=== PATIENT | male | born 1990 | race Caucasian/White ===

== ENCOUNTER 2016-10-24 04:06 | Inpatient (IN) | payer OTHER ==
--- NOTE | ~2016-10-24 | DS ---
Unit #: [id number] #: [id number] Patient: NATALYA CROOK [id number] [address] [address] [id number] MR#: [id number] NAME: NATALYA CROOK ROOM: 572 Age: 26 Sex: M Admission Date: 10/24/2016 : 1990 Discharge Date: 10/26/2016 Attending Physician: Althea Johnson M.D. DISCHARGE SUMMARY PRIMARY CARE PHYSICIAN None as the patient is from [place]. DISCHARGE DIAGNOSES 1. Hypertensive crisis. 2. End-stage renal disease. 3. Abdominal pain. 4. Diabetes with gastroparesis. 5. Heart failure. 6. Peripheral neuropathy. 7. History of major depression. 8. Dyslipidemia. 9. Anemia of chronic disease. 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 PROCEDURE The patient had dialysis today, 10/25/2016. DIAGNOSTIC STUDIES IMAGING STUDIES: Chest x-ray on 10/24/2016; impression is small right pleural effusion, unchanged from yesterday. No definite infiltrates visible. CT of abdomen and pelvis; impression is small bilateral pleural effusion, right greater than left, splenomegaly, prominent vessels in the left upper quadrant could represent varices as mentioned above. Exophytic lesion of the lower pole of spleen, which measures low density and measures about 2.9 cm, probably represent a splenic cyst. LABORATORY RESULTS: On the day of discharge include BMP with glucose of 413, BUN 26, creatinine 5.8, sodium 135, potassium 4.8, chloride 95, CO2 of 27, calcium 9.1, total protein is 6.7, albumin 3.2, total bilirubin is 1.1. AST 11, ALT 8, alk phos is 56, amylase is 21, lipase is 42, BNP is 1227. The patient's hemoglobin A1c was 7.9. CBC; WBC 8.2, RBC 3.53, hemoglobin 8.7, hematocrit 27.3, MCV is 77.1, MCH 24.1, MCHC 32.0, RDW 18.9, platelet 162, MVP 8.0. HOSPITAL COURSE The patient is a 26-year-old male with a past medical history of congenital renal disease, on hemodialysis Saturday, Saturday, and Saturday, essential hypertension, diabetes with gastroparesis, dyslipidemia, anemia Unit #: [id number] #: [id number] Patient: NATALYA CROOK due to chronic kidney disease, who was admitted to [facility] due to abdominal pain and the patient was also found to have hypertensive crisis. Blood pressure elevated to 194/120. A BNP when assessed was elevated to 1227. Please note the patient does have endstage renal disease and is dialysis dependent. To assess abdominal pain, a CT of abdomen was done with findings as stated above. With this much elevated BNP, a CT echo was done with findings, left ventricular systolic function is normal with estimated ejection fraction of 50% to 55%. No regional wall motion abnormalities are noted. Mild concentric left ventricular hypertrophy, mildly dilated left atrium, mild mitral regurgitation is present, mild tricuspid regurgitation, right ventricular systolic pressure is 47 mmHg. No evidence of pericardial effusion. The patient likely has hypertensive emergency as well as much elevated BNP due to his volume overload. He was see in consultation with Nephrology, Dr. Bui, who has written orders for the patient to receive dialysis 4 hours today. The patient has recently moved here from [place] and is getting dialysis temporarily at [facility]. He does have a slot there and he will continue dialysis there until his boat engines installer in [place] can arrange for a boat engines installer in [place] to follow him and at that time, the patient's symptoms of abdominal pain and has an unremarkable workup with elevated BNP. His echocardiogram is unremarkable and these findings were likely due to his renal disease. The patient should continue with dialysis and the temporary physician with [facility] until permanent boat engines installer can take care of him here in nephrology and this is being arranged by his boat engines installer in [place]. The patient may also be transferred dialysis under the care of Dr. Bui, who has been seeing him in the hospital. This can be arranged outpatient. At this time, the patient will be discharged home after dialysis done. DISCHARGE CONDITION Stable. ACTIVITIES No restrictions. The patient is to resume activities as prior to hospitalization, was ambulating every day. DISCHARGE DIET The patient is to have renal diet as he has an endstage renal disease, on dialysis. DISCHARGE MEDICATIONS As per prior to hospitalization with sodium bicarb 650 mg orally t.i.d., gabapentin 100 mg orally t.i.d., Paxil 10 mg orally daily, atorvastatin 80 mg orally daily, Norvasc 10 mg orally daily, Epogen 8 units Saturday, Saturday, Saturday with dialysis, clonidine 0.3 mg orally t.i.d., hydralazine 100 mg orally t.i.d., minoxidil 2.5 mg orally daily, Humalog 4 units subcutaneously prior to meals in addition to sliding scale insulin, Lantus 25 units subcutaneously b.i.d., Reglan 5 mg orally t.i.d., Zantac 150 mg orally b.i.d., Carafate 1 g orally t.i.d., Imdur 60 mg orally daily. Dictated by... Dylon Lauren PA-C for Ludin Zamarripa/abraham TD: 10/28/2016 06:27 JOB #: [id number] Unit #: [id number] #: [id number] Patient: CROOKNATALYA DOUGLAS DISCHARGE SUMMARY Page 1 of 1 X X DISCHARGE SUMMARY
--- NOTE | ~2016-10-24 | EKG ---
PATIENT: NATALYA CROOK UNIT #: [id number] Ventricular Rate: 93 BPM Atrial Rate: 93 BPM P-R Interval: 158 ms QRS Duration: 92 ms Q-T Interval: 360 ms QTC Calculation(Bezet): 447 ms P Simpson: 10 degrees Calculated R Simpson: 3 degrees Calculated T Simpson: 38 degrees Diagnosis Line: Normal sinus rhythm Diagnosis Line: Normal ECG Diagnosis Line: No previous ECGs available Diagnosis Line: Confirmed by DAX LANZA MD ([id number]) on 10/25/2016 Diagnosis Line: 7:46:26 PM INTERPRETING MD: MYLA TARANGO
--- NOTE | ~2016-10-24 | CR72 ---
[facility] A Service of [facility] & [facility] RADIOLOGY TEXT RESULTS PATIENT: NATALYA CROOK LOCATION: [facility] [id number] : [birth year] UNIT #: [id number] AGE: [address]: Althea Johnson MD SEX: M ORDER DR: [id number] [facility] [address] [place], [place] [address] [id number] I MR#: [id number] Acc #: [id number] NAME: NATALYA CROOK : 1990 SEX: M STUDY DATE/TIME: 10/24/2016 6:36 UNIT: [facility] ROOM: 68620 STUDY DESCRIPTION: CR Chest Single View Portable Attending Physician: Althea Johnson M.D. Ordering Physician: Ed Doctor [id number] [facility] Primary Care Physician: Primary Care Physician No MEDICAL IMAGING REPORT This report is preliminary unless electronic signature is present EXAM Portable chest. HISTORY Shortness of air and chest pain for one day. COMPARISON 10/23/2016 FINDINGS A portable view of the chest is obtained. The heart size is upper limits of normal. The left lung is clear. There is a small right pleural effusion. There has been no change from yesterday's study. IMPRESSION Small right pleural effusion, unchanged from yesterday. No definite infiltrates are visible. Dictated by... Nicolas Hogan M.D. THIS IS AN ELECTRONICALLY VERIFIED REPORT Nicolas Hogan M.D. at 10/24/2016 3:57 PM Bryce TD: 10/24/2016 10:05 JOB #: [id number] MEDICAL IMAGING REPORT Page 1 of 1 COPY
--- NOTE | ~2016-10-24 | CT4 ---
[facility] A Service of [facility] RADIOLOGY TEXT RESULTS PATIENT: NATALYA CROOK LOCATION: [facility] 572-01 : [birth year] UNIT #: [id number] AGE: [address]: Althea Johnson MD SEX: M ORDER DR: [id number] [facility] [address] [place], [place] [address] [id number] MR#: [id number] Acc #: [id number] NAME: NATALYA CROOK : 1990 SEX: M STUDY DATE/TIME: 10/24/2016 18:39 UNIT: [facility] ROOM: 2 STUDY DESCRIPTION: CT Abd and Pelv Wo Cont Attending Physician: Althea Johnson M.D. Ordering Physician: Althea Johnson M.D. Primary Care Physician: No Primary Care Physician MEDICAL IMAGING REPORT This report is preliminary unless electronic signature is present EXAM CT abdomen and pelvis without contrast HISTORY Generalized abdominal pain for 2 days. History of CHF. Kidney disease. TECHNIQUE This CT exam was performed with one or more of the following radiation dose reduction techniques: automatic exposure control, adjustment of mA and/or kV according to patient size, and iterative reconstruction. FINDINGS Axial images performed through the abdomen and pelvis without contrast. Multiplanar reconstructed images reviewed at a workstation. There are small bilateral pleural effusions right greater than left. There is cardiomegaly. Liver and gallbladder unremarkable. Splenomegaly. Visualized portions stomach, small bowel and colon unremarkable except for areas of increased density within the right colon and probably related to medicinal preparation. Retroperitoneum unremarkable. Pelvis: Bladder decompressed. No pelvic masses. Osseous structures remarkable for deformity of both hips which may be related to chronic slip cap femoral epiphyses. Bone deformity seen along the anterior abdominal wall may be related previous ventral incision. IMPRESSION 1. Small bilateral pleural effusions right greater than left. 2. Splenomegaly. 3. Prominent vessels in the left upper quadrant could represent varices, 4. Not mentioned above, there is an exophytic lesion off the lower pole of the spleen which appears low density and measures about 2.9 cm, [facility] A Service of [facility] RADIOLOGY TEXT RESULTS PATIENT: NATALYA CROOK LOCATION: C5 572-01 : [birth year] UNIT #: [id number] AGE: [address]: Althea Johnson MD SEX: M ORDER DR: probably represents a splenic cyst. Dictated by... Anjel Hancock M.D. THIS IS AN ELECTRONICALLY VERIFIED REPORT Anjel Hancock M.D. at 10/25/2016 2:03 PM Dimas TD: 10/24/2016 22:01 JOB #: [id number] MEDICAL IMAGING REPORT Page 1 of 1 COPY
--- NOTE | ~2016-10-24 | HP ---
Unit #: [id number] #: [id number] Patient: NATALYA CROOK [id number] [address] [place], [place] [address] [id number] I MR#: [id number] NAME: NATALYA CROOK ROOM: 572 Age: 26 Sex: M Admission Date: 10/24/2016 : 1990 Attending Physician: Althea Johnson M.D. Primary Care Physician: No Primary Care Physician HISTORY AND PHYSICAL REASON FOR ADMISSION Intractable abdominal pain, hyperkalemia, end-stage renal disease, hypertensive crisis. 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 He states that several years ago his kidneys stopped functioning altogether. He was placed on dialysis originally when he had been living in [place]. He recently had moved to [place] several months ago. He has been seeing Dr. Michael Bui of Nephrology Services for the same and has been undergoing routine dialysis per his discretion. He does not have a primary care physician per se. He also tells me that in the past he has been diagnosed with heart failure. His BNP on admission was noted to be 1,227. He is not sure what his ejection fraction was or is. He is not sure when his last 2-D echocardiogram was performed. Initial laboratory studies yielded a potassium of 6.1, creatinine 6.2, hemoglobin 9.2, BNP of 1,227 and normal lipase level. He also tells me in the past he has had a history of chronic pancreatitis, issues with intractable abdominal pain and this feels like one of those episodes that he is currently having at the present time. PAST MEDICAL HISTORY Heart failure, unclear if it is diastolic versus systolic, end-stage renal disease, prior history of kidney transplant at age 12, history of nonfunctioning kidneys, hypertension, questionable compliance with medications, history of chronic pancreatitis. PAST SURGICAL HISTORY History of kidney transplant at age 12. SOCIAL HISTORY No alcohol use. No tobacco use. The patient denies illicit drug use. FAMILY HISTORY Reviewed and noncontributory, nonpertinent. ALLERGIES Codeine, amoxicillin, iodine, contrast. Unit #: [id number] #: [id number] Patient: NATALYA CROOK HOME MEDICATIONS Currently being verified. REVIEW OF SYSTEMS Please see HPI, 12-point otherwise negative except for those positive noted in the HPI. PHYSICAL EXAMINATION GENERAL APPEARANCE: The patient is a 26-year-old male who states that his abdomen is really bothering him. VITAL SIGNS: Temperature 98.9. Pulse 92. Respiratory rate 22. Blood pressure 194/120. HEENT: Head exam: Atraumatic. Ear exam: No erythema noted on tympanic membranes. NECK: Supple. No JVD. No carotid bruits. CARDIOVASCULAR: S1, S2 without murmur. RESPIRATORY: Clear. No evidence of any wheeze, rales or rhonchi. GASTROINTESTINAL/ABDOMEN: Distension noted. Diffuse tenderness noted more marked in the epigastric area. LOWER EXTREMITIES: No evidence of any lower extremity edema. No calf tenderness. NEUROLOGIC: The patient is alert and oriented x3. No evidence of any focal neuro deficits. DIAGNOSTIC STUDIES INITIAL LABORATORY STUDIES: Please see above including a potassium of 6.1, creatinine 6.2, hemoglobin 9.2, BNP of 1,227. ER COURSE The patient received morphine, Zofran, Dilaudid, Kayexalate, regular insulin 8 units IV as well as calcium gluconate. Dr. Michael Bui of Nephrology Services has already seen and evaluated the patient and plans have been made for hemodialysis later this afternoon. INITIAL ADMISSION DIAGNOSES 1. Hypertensive urgency. 2. Likely fluid overload. 3. End-stage renal disease. 4. Intractable abdominal pain. 5. History of chronic pancreatitis. 6. Hyperkalemia. 7. Elevated BNP, questionable history of heart failure. PLAN Admission telemetry floor. Nephrology consultation. Hemodialysis per Nephrology. Check CT abdomen and pelvis noncontrast. Dilaudid p.r.n. pain. Protonix. Urine tox screen. Routine laboratory studies to follow. Etiology of abdominal pain remains unclear. Perhaps, after dialysis, when fluid is removed, his abdominal pain may improve. I will also check the aforementioned CT to rule out the possibility of underlying pancreatitis, although his lipase is normal. Certainly, in the setting of normal lipase with a prior history of chronic pancreatitis, this may be a possible etiology. We will also consider GI consultation at some point in time if there is no resolution of the aforementioned abdominal pain. Dictated by Unit #: [id number] #: [id number] Patient: CROOKNATALYA M.D. ISN/bd TD: 10/26/2016 06:06 JOB #: [id number] HISTORY AND PHYSICAL Page 1 of 1 X Althea Johnson MD X HISTORY AND PHYSICAL
--- NOTE | ~2016-10-24 | CO ---
Unit #: [id number] #: [id number] Patient: NATALYA CROOK [id number] [id number] [facility]. [place], [place] [address] [id number] MR#: [id number] NAME: NATALYA CROOK ROOM: 572 Age: 26 Sex: M Admission Date: 10/24/2016 : 1990 Attending Physician: Althea Johnson M.D. Primary Care Physician: Primary Care Physician No Consultation Date: 10/26/2016 CONSULTATION REPORT REASON FOR CONSULTATION End-stage renal disease. HISTORY OF PRESENT ILLNESS The patient is a 26-year-old white male with known history of end-stage renal disease, previously had failed renal transplant, has been on dialysis and now has moved to [place]. The patient came in with abdominal pain and was admitted for further workup, also previous history of chronic pancreatitis. He also has complaints of vague chest pressure for which a cardiac workup is in progress. We have been asked to provide hemodialysis in the hospital. PAST MEDICAL HISTORY Significant for previous vague history of CHF, status post failed kidney transplant at age 12, has been on dialysis with left arm AV fistula, hypertension, history of recurrent chronic pancreatitis. PAST SURGICAL HISTORY Significant for renal transplant at age 12. SOCIAL HISTORY Does not drink or smoke. FAMILY HISTORY Unremarkable for end-stage renal disease. ALLERGIES Codeine, amoxicillin, iodine. HOME MEDICATIONS As per H and P. REVIEW OF SYSTEMS CVS: As above. RESPIRATORY: No cough or expectoration. GI: No diarrhea. No vomiting. Abdominal pain as above. PHYSICAL EXAMINATION GENERAL: The patient is awake, alert, and oriented. VITAL SIGNS: Temperature is 98.9, the blood pressure is 194/120, heart rate is 92 per minute. HEENT: Head is atraumatic. Extraocular movements are intact. Sclerae are anicteric. NECK: Supple. There is no elevation of JVD. Unit #: [id number] #: [id number] Patient: NATALYA CROOK CHEST: Clear. Air entry is equal bilaterally. Breathing is vesicular in nature. HEART: S1, S2 audible. There is no S3, no S4. ABDOMEN: Soft. There is no organomegaly. No guarding. No rigidity. There is no rebound tenderness. Minimal epigastric tenderness. BABY COUNSELOR: Motor system is intact. Cerebellar system is intact is intact. DIAGNOSTIC STUDIES LABORATORY RESULTS: Sodium 135, potassium 4.8, CO2 of 27, chloride 95, BUN 26, creatinine 5.6, calcium 9.1. Hemoglobin A1c 7.9. WBC 3.2, hemoglobin is 8.7, hematocrit is 27.3, the platelets is 162. IMPRESSION End-stage renal disease. We will arrange hemodialysis in the hospital. Correct hyperkalemia, use 2K bath. The abdominal and the chest pain is being worked up. Supplement Epogen for anemia. Dictated by... Michael Bui M.D. RA/abraham TD: 10/27/2016 02:13 JOB #: [id number] CONSULTATION REPORT Page 1 of 1 X Michael Bui MD X CONSULTATION REPORT
--- NOTE | ~2016-10-24 | EKG ---
PATIENT: NATALYA CROOK UNIT #: [id number] Ventricular Rate: 95 BPM Atrial Rate: 95 BPM P-R Interval: 176 ms QRS Duration: 88 ms Q-T Interval: 342 ms QTC Calculation(Bezet): 429 ms P Tucker: 28 degrees Calculated R Tucker: -4 degrees Calculated T Tucker: 35 degrees Diagnosis Line: Normal sinus rhythm Diagnosis Line: Possible Inferior infarct , age undetermined Diagnosis Line: Abnormal ECG Diagnosis Line: When compared with ECG of 24-OCT-2016 02:56, Diagnosis Line: (unconfirmed) Diagnosis Line: No significant change was found Diagnosis Line: Confirmed by DAX LANZA MD ([id number]) on 10/25/2016 Diagnosis Line: 7:49:47 PM INTERPRETING MD: MYLA TARANGO
[2016-10-24 04:03] LABS: BASOPHIL# 0.1 X10e3 (0-0.3); BASOPHIL% 1.3 % (0-2.5); EOSINOPHIL# 0.5 X10e3 (0-0.7); EOSINOPHIL% 8.7 % (0.0-7.0); HEMATOCRIT 28.2 % (38.0-50.0); HEMOGLOBIN 9.2 gm/dL (13.0-16.0); LYMPHOCYTE# 0.7 X10e3 (1.0-3.5); LYMPHOCYTE% 12.3 % (17.0-45.0); MEAN CORPUSCULAR HEMOGLOBIN 25.2 PG (28-34); MEAN CORPUSCULAR HGB CONC 32.7 g/dL (30-36); MONOCYTE# 0.3 X10e3 (0-1.0); MONOCYTE% 5.9 % (3.0-12.0); NEUTROPHIL# 3.9 X10e3 (1.5-7.1); NEUTROPHIL% 71.8 % (40-75); PLATELET COUNT 167 X10e3 (140-420); RED BLOOD COUNT 3.66 X10e (3.90-5.60); RED CELL DISTRIBUTION WIDTH 18.7 % (11.0-15.5); WHITE BLOOD COUNT 5.4 X10e3 (4.0-10.5)
[2016-10-24 04:04] LABS: DIFF IND NO
[2016-10-24 05:52] LABS: ALBUMIN SERUM 3.2 g/dL (3.5-5.0); BILIRUBIN, DIRECT 0.2 mg/dL (0.0-0.2); BILIRUBIN,INDIRECT 0.9 mg/dL (0.0-0.9); BILIRUBIN,TOTAL 1.1 mg/dL (0.2-2.0); BUN/CREATININE RATIO 4.51; CALCIUM SERUM 9.1 mg/dL (8.4-10.2); CREATININE SERUM 6.2 mg/dL (0.6-1.4); GLOM FILT RATE Estimated 11.3 mL/min (>60); PROTEIN TOTAL SERUM 6.7 g/dL (6.0-8.3)
[2016-10-24 05:55] LABS: POTASSIUM 6.1 mmol/L (3.5-5.1)
[2016-10-24] MEDS ORDERED: HYDRALAZINE HC100 MG PO (08:04)
[2016-10-24] MEDS ORDERED: CLONIDINE HCL0.3 MG PO (08:06)
[2016-10-24] MEDS ORDERED: SODIUM BICARBO650 MG PO (08:06)
[2016-10-24] MEDS ORDERED: MINOXIDIL2.5 MG PO (08:07)
[2016-10-24] MEDS ORDERED: NORVASC10 MG PO (08:55)
[2016-10-24] MEDS ORDERED: NEURONTIN800 MG PO (08:55)
[2016-10-24] MEDS ORDERED: LANTUS100 U/ML SUBQ (08:56)
[2016-10-24] MEDS ORDERED: HUMALOG100 UNIT/1 SUBQ ×2 (08:56→08:58)
[2016-10-24] MEDS ORDERED: ATORVASTATIN CA80 MG PO (08:58)
[2016-10-24] MEDS ORDERED: CARAFATE1 GM PO (08:59)
[2016-10-24] MEDS ORDERED: ZANTAC150 MG PO (08:59)
[2016-10-24] MEDS ORDERED: PAXIL10 MG PO (08:59)
[2016-10-24] MEDS ORDERED: REGLAN5 MG PO (08:59)
[2016-10-24] MEDS ORDERED: ISOSORBIDE MONO60 M1 PO (11:57)
[2016-10-24] MEDS ORDERED: PROCRIT SUBQ (11:58)
[2016-10-25 06:41] LABS: HEMATOCRIT 27.3 % (38.0-50.0); HEMOGLOBIN 8.7 gm/dL (13.0-16.0); MEAN CELL VOLUME 77.1 FL (83-96); MEAN CORPUSCULAR HEMOGLOBIN 24.7 PG (28-34); RED BLOOD COUNT 3.53 X10e (3.90-5.60); RED CELL DISTRIBUTION WIDTH 18.9 % (11.0-15.5); WHITE BLOOD COUNT 3.2 X10e3 (4.0-10.5)
[2016-10-25 07:09] LABS: BUN/CREATININE RATIO 4.64; CALCIUM SERUM 9.1 mg/dL (8.4-10.2); CREATININE SERUM 5.6 mg/dL (0.6-1.4); GLOM FILT RATE Estimated 12.8 mL/min (>60); POTASSIUM 4.8 mmol/L (3.5-5.1)
[2016-10-25 11:53] LABS: IRON SERUM 35 ug/dL (45-182); TOTAL IRON BINDING CAPACITY 144 ug/dL (252-460); TRANSFERRIN 103 mg/dL (180-329); TRANSFERRIN SATURATION 24 % (20-50)
== END 2016-10-26 00:54 | disposition home or self-care (01) | DRG 304 ==
LOC: CED 04:06 → CEDOF 06:38 → C5C 19:52
PROVIDERS: Emergency Medicine; Family Medicine; Internal Medicine Nephrology
PROC: 5A1D60Z (ICD-10-PCS; principal; 2016-10-24)
PROC: B246ZZZ Ultrasonography of Right and Left Heart (ICD-10-PCS; 2016-10-25)
DX: I16.9 Hypertensive crisis, unspecified (principal); N18.6 End stage renal disease; E11.22 Type 2 diabetes mellitus with diabetic chronic kidney disease; E11.42 Type 2 diabetes mellitus with diabetic polyneuropathy; I08.1 Rheumatic disorders of both mitral and tricuspid valves; Z94.0 Kidney transplant status; I13.2 Hypertensive heart and chronic kidney disease with heart failure and with stage 5 chronic kidney disease, or end stage renal disease; I50.9 Heart failure, unspecified; Z99.2 Dependence on renal dialysis; R10.9 Unspecified abdominal pain; E11.43 Type 2 diabetes mellitus with diabetic autonomic (poly)neuropathy; K31.84 Gastroparesis; F32.9 Major depressive disorder, single episode, unspecified; E78.5 Hyperlipidemia, unspecified; D63.1 Anemia in chronic kidney disease; E87.5 Hyperkalemia; E87.70 Fluid overload, unspecified; Z88.1 Allergy status to other antibiotic agents; Z91.041 Radiographic dye allergy status; Z88.5 Allergy status to narcotic agent; Z91.048 Other nonmedicinal substance allergy status
CPT/HCPCS: 36415; 71010; 74176; 80048; 80076; 82150; 82728; 82947; 83036; 83540; 83550; 83690; 83880; 84443; 85025; 85027; 87340; 93005; 93306; 96374; 96375; 99285; C9113; J0610; J1170; J1815; J2060; J2270; J2405; Q4081

== ENCOUNTER 2016-10-27 02:35 | Inpatient (IN) | payer OTHER ==
--- NOTE | ~2016-10-27 | EKG ---
PATIENT: NATALYA CROOK UNIT #: [id number] Ventricular Rate: 90 BPM Atrial Rate: 90 BPM P-R Interval: 146 ms QRS Duration: 92 ms Q-T Interval: 384 ms QTC Calculation(Bezet): 469 ms P Mclean: 13 degrees Calculated R Mclean: 6 degrees Calculated T Mclean: 44 degrees Diagnosis Line: Normal sinus rhythm Diagnosis Line: Incomplete right bundle branch block Diagnosis Line: Borderline ECG Diagnosis Line: When compared with ECG of 24-OCT-2016 06:26, Diagnosis Line: Borderline criteria for Inferior infarct are no Diagnosis Line: longer Present Diagnosis Line: Confirmed by DAX LANZA MD ([id number]) on 10/28/2016 Diagnosis Line: 7:11:30 AM INTERPRETING MD: MYLA TARANGO
--- NOTE | ~2016-10-27 | CT57 ---
[facility] A Service of [facility] RADIOLOGY TEXT RESULTS PATIENT: NATALYA CROOK LOCATION: C2A : [birth year] UNIT #: [id number] AGE: [address]: Althea Johnson MD SEX: M ORDER DR: [id number] [facility] [address] [place], [place] [address] [id number] I MR#: [id number] Acc #: [id number] NAME: NATALYA CROOK : 1990 SEX: M STUDY DATE/TIME: 11/01/2016 8:45 UNIT: C2A ROOM: 220 STUDY DESCRIPTION: CT Chest Wo Cont Attending Physician: Althea Johnson M.D. Ordering Physician: Althea Johnson M.D. Primary Care Physician: Primary Care Physician No MEDICAL IMAGING REPORT This report is preliminary unless electronic signature is present EXAM Chest CT, 11/01 INDICATION Shortness of air and chest pain for the last 6 days. History of CHF, hypertension and diabetes as well as renal disease. TECHNIQUE Axial images were obtained through the chest without contrast. Multiplanar reformats were obtained. This CT exam was performed with one or more of the following radiation dose reduction techniques: automatic exposure control, adjustment of mA and/or kV according to patient size, and iterative reconstruction. COMPARISON No comparison chest CT. FINDINGS There are small bilateral pleural effusions, right larger than left. There is mild cardiomegaly. No pericardial effusion. There is mild generalized anasarca. Ground-glass infiltrates in both lungs with septal thickening are most compatible with pulmonary edema. More confluent patchy areas of consolidation may also reflect edema but underlying pneumonia is not excluded. There is a granuloma in the left lower lobe. There is mediastinal adenopathy. A right paratracheal node measures 1.8 x 1.5 cm. Multiple other smaller nodes are seen in the mediastinum as well. These may be reactive. Upper abdomen shows a mild degree of splenomegaly. IMPRESSION 1. Small bilateral effusions, right larger than left. 2. There is pulmonary edema. There are areas of more confluent patchy alveolar consolidation in both lungs as well which could also be STS. [facility] A Service of [facility] & [facility] RADIOLOGY TEXT RESULTS PATIENT: NATALYA CROOK LOCATION: [place] [address] : [birth year] UNIT #: [id number] AGE: [address]: Althea Johnson MD SEX: M ORDER DR: related to pulmonary edema but pneumonia not excluded. 3. Mild mediastinal adenopathy, probably reactive. 4. Mild anasarca. 5. Mild cardiomegaly and mild splenomegaly. Dictated by... Aly Barnard Jr., M.D. THIS IS AN ELECTRONICALLY VERIFIED REPORT Aly Barnard Jr., M.D. at 11/01/2016 12:36 PM GLYNN/catherine TD: 11/01/2016 11:52 JOB #: [id number] MEDICAL IMAGING REPORT Page 1 of 1 COPY
--- NOTE | ~2016-10-27 | CO ---
Unit #: [id number] #: [id number] Patient: NATALYA CRUZ [id number] [address] [place], [place] [address] [id number] I MR#: [id number] NAME: NATALYA CRUZ ROOM: 220 Age: 26 Sex: M Admission Date: 10/27/2016 : 1990 Attending Physician: Althea Johnson M.D. Primary Care Physician: No Primary Care Physician Consultation Date: 11/01/2016 CONSULTATION REPORT HISTORY OF PRESENT ILLNESS Mr. Cruz is a 26-year-old white male who was admitted at this time for upper abdominal pain. He has a very complicated history of renal dialysis and recent operation for bowel obstruction. He has had multiple abdominal operations. He has evidence of esophagogastric varices clinically. He has had a history of ascites with chronic pancreatitis. There was some evidence also that he has splenomegaly. The patient subsequently has resolved most of his abdominal symptoms. He feels better. He has no evidence of any peritoneal signs. He did have recent abdominal surgery for questionable bowel obstruction according to patient. Presently, at this time, he is on dialysis and oxygen. He has recently moved from [place] to [place]. For other past medical history, see notes per Renal Medicine. He is a diabetic and hypertensive with issues related to that. PHYSICAL EXAMINATION VITAL SIGNS: A cooperative, alert white male with oxygen in place. HEENT: ENT is clear. There is no jaundice CHEST: Scattered rales and rhonchi and crackles. CARDIAC: Irregular rhythm. ABDOMEN: Slightly protuberant. Incision healed. No evidence of any infection. No peritoneal signs. Spleen not palpable but appears to have some mild ascites. I do not think this patient at this time would benefit from a splenectomy, at least not an emergent. He could possibly have it done electively if his electrolytes and coagulation factors are optimized and if he is at least three to four months out from previous operation. We would follow as an outpatient. At this time, I do not think he needs any surgery on this admission. Dictated by... Duane Delgado M.D. FÉLIX/iraj TD: 11/01/2016 09:06 JOB #: [id number] Unit #: [id number] #: [id number] Patient: NATALYA CRUZ CONSULTATION REPORT Page 1 of 1 X Duane Delgado MD CONSULTATION REPORT
--- NOTE | ~2016-10-27 | CO ---
Unit #: [id number] #: [id number] Patient: NATALYA CRUZ [id number] [facility] [address] [facility]. [place], [place] [address] [id number] I MR#: [id number] NAME: NATALYA CRUZ ROOM: 569 Age: 26 Sex: M Admission Date: 10/27/2016 : 1990 Attending Physician: Burak Dukes M.D. Consultation Date: 10/28/2016 CONSULTATION REPORT REASON FOR CONSULTATION Abdominal pain. HISTORY OF PRESENTING ILLNESS Mr. Cruz is a 26-year-old gentleman with very complicated history. He was born with kidney failure, apparently he got started on renal dialysis at 10 and transplant at 12 which failed and currently he is on dialysis; however, not getting dialysis regularly and only apparently getting them in the hospital as he keeps coming. The patient was admitted at this time with severe abdominal pain, which he is pointing to the upper abdomen. He has no nausea, no vomiting, no change in bowel movements. He has been having bowel movements regularly. He denies any blood in the stool, blood in the vomiting. He has been able to eat and on a diet in the hospital apparently. PAST MEDICAL HISTORY Significant for, 1. Chronic renal failure on dialysis. 2. He had some bowel surgery at [facility] about 6 months ago, apparently part of the small intestine colon were taken out. I do not have details on that, but plan on getting that information. 3. He has history of chronic pancreatitis, apparently a pseudocyst ruptured and he had to have partial pancreatectomy. Again, the cause of pancreatitis is not clear. He denies any history of alcohol intake. He still has his gallbladder without any stones. SOCIAL HISTORY Denies alcohol. Denies smoking or drug abuse. FAMILY HISTORY Noncontributory. ALLERGIES Codeine, amoxicillin, iodine contrast. MEDICATIONS Currently include Procrit, Lipitor, insulin, Levemir, Reglan, hydromorphone, Paxil, Norvasc, Pepcid, NovoLog, Carafate, Neurontin, sodium bicarbonate, hydralazine. REVIEW OF SYSTEMS Complete 10-point review of systems was done, which is unremarkable other Unit #: [id number] #: [id number] Patient: NATALYA CRUZ than has already been detailed. PHYSICAL EXAMINATION GENERAL: In no acute distress. VITAL SIGNS: Stable, temperature 98, pulse 92, respirations 18, blood pressure of 156/86. HEENT: Pupils are equal and reactive. Sclerae anicteric. Oral mucosa moist. NECK: No JVD. No lymphadenopathy. CHEST: Clear to auscultation bilaterally. CARDIOVASCULAR: Regular rate and rhythm. No murmurs. ABDOMEN: Soft, midline scarring. No tenderness or guarding. No organomegaly or ascites clinically. EXTREMITIES: Without clubbing, cyanosis, or edema. NEUROLOGIC: Grossly intact. Detailed examination deferred. DIAGNOSTIC STUDIES LABORATORY RESULTS: Hemoglobin of 8.7, MCV of 76, normal platelet count, normal white count. Iron levels low, ferritin level of 317. Amylase and lipase were unremarkable. LFTs were unremarkable. BUN and creatinine at 34 and 6.4. ASSESSMENT AND PLAN 1. The patient with significant upper abdominal pain, iron-deficiency anemia, chronic renal disease, history of pancreatitis status post partial pancreatectomy, status post bowel surgery. Plan, continue with symptomatic treatment with pain control on PPIs for now. Upper endoscopy for evaluation of the pain, rule out ulcers, other etiologies. We will get the surgery records from [facility] and review as available. 2. Chronic kidney disease, on dialysis. Thank you, Dr. Johnson, for this interesting consult. We will follow along. Dictated by... Ludin Nahs/abraham TD: 10/29/2016 04:19 JOB #: [id number] CONSULTATION REPORT Page 1 of 1 X Donte Jordan MD CONSULTATION REPORT
--- NOTE | ~2016-10-27 | CO ---
Unit #: [id number] #: [id number] Patient: NATALYA CROOK [id number] [address] [place], [place] [address] [id number] I MR#: [id number] NAME: NATALYA CROOK ROOM: 569 Age: 26 Sex: M Admission Date: 10/27/2016 : 1990 Attending Physician: Burak Dukes M.D. CONSULTATION REPORT REASON FOR CONSULTATION Renal failure and ESRD. HISTORY OF PRESENT ILLNESS The patient is a 26-year-old male with significant past medical history of ESRD, on hemodialysis for the last almost one year. He has a pretty long renal history. At , he had some defect in his kidneys and his kidney was only 20% to 25%. At the age of 10, he was started on peritoneal dialysis. At the age of 13, he had a right renal transplant. Last year, his transplant failed. He restarted on hemodialysis. He is getting hemodialysis with a left upper arm fistula, which is working fine. He is obtaining his dry weight. He was diagnosed with congestive heart failure about few years back. He also had history of hypertension and diabetes. No other complaints at this time. His last dialysis was and today this is a regular day of dialysis. He moved to [place] and need to establish with a ct technician in a dialysis unit. PAST MEDICAL HISTORY Significant for ESRD, hypertension, diabetes, hyperlipidemia, congestive heart failure. PERSONAL HISTORY No history of smoking. Will be living with his father. REVIEW OF SYSTEMS Already explained. PHYSICAL EXAMINATION GENERAL: The patient is a young man, not in any acute distress. VITAL SIGNS: Last blood pressure is 179/100, pulse is 74, temperature 97, oxygen saturation is 99%. HEAD AND NECK: Pupils are reactive to light. Extraocular movements are intact. Mucous membrane moist. NECK: Supple. CHEST: Clear. No wheezes, no rales. No bronchial breathing. HEART: Regular rate and rhythm. No murmur. No gallop. ABDOMEN: Soft and nontender. EXTREMITIES: The patient has accesses in his left upper arm with good bruit. NEUROLOGICAL: Grossly nonfocal. DIAGNOSTIC STUDIES LABORATORY RESULTS: Creatinine 6.4, hemoglobin is 8.6. Unit #: [id number] #: [id number] Patient: NATALYA CROOK ASSESSMENT AND PLAN 1. End-stage renal disease. 2. Diabetes mellitus. 3. Hypertension. 4. History of congestive heart failure. DISCUSSION The patient with ESRD moving to [place], need to be established as a patient. We will get the hemodialysis done today. Next hemodialysis will be Saturday. We will try to arrange hemodialysis at [facility] and will follow up with the labs there. The patient will be a good candidate to be on the transplant list again soon. Thank you for letting me participate. Dictated by... Joseph Arana M.D. WHITNEY/abraham TD: 10/27/2016 23:38 JOB #: [id number] CONSULTATION REPORT Page 1 of 1 X Joseph Arana MD X CONSULTATION REPORT
--- NOTE | ~2016-10-27 | DS ---
Unit #: [id number] #: [id number] Patient: NATALYA CROOK [id number] [address] [place], [place] [address] [id number] I MR#: [id number] NAME: NATALYA CROOK ROOM: 220 Age: 26 Sex: M Admission Date: 10/27/2016 : 1990 Discharge Date: 11/01/2016 Attending Physician: Althea Johnson M.D. Primary Care Physician: No Primary Care Physician DISCHARGE SUMMARY DISCHARGE DIAGNOSES 1. Abdominal pain. Status post EGD. 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 TIPS evaluation was done by radiology, who did not recommend TIPS at this time. Please see the radiologist's full dictated report and imaging for further details. 2. The patient was also evaluated by general surgery for splenectomy. They did state that the patient does not need an emergent splenectomy at this time and can follow up outpatient with them. 3. Endstage renal dialysis. Will be followed by Dr. Bui and Dr. Arana [facility] on Saturday, and Saturday. 4. Pulmonary edema due to likely noncompliance with diet. The patient has been getting dialysis here in the hospital, but still with pulmonary edema. When I saw the patient he had instant noodles in his room and popcorn. There is a specific order to have no outside food and to have a strict renal diet with consistent carbs, but despite that the patient still has food in his room. 5. Chronic bilateral pleural effusion, right greater than left. CT chest has been done. Refer to full details. 6. Chronic pancreatitis. Acute hepatitis panel was nonreactive. 7. Essential hypertension. Blood pressure has been stable in the past 24 hours, although the patient is very difficult to control blood pressure. 8. Type 2 diabetes. A1c is 7.9. 9. Noncompliance. 10. Drug-seeking behavior. CONSULTANTS Nephrology with Dr. Bui and Dr. Arana. LSA with Dr. Delgado. Gastroenterology with Dr. Jordan. PROCEDURES PERFORMED EGD by Dr. Jordan on 10/29/2016. Postoperative findings, small segment Couch esophagus. No biopsies taken because of risk of bleeding. Prominent gastric fundic and cardiac varices. Gastritis diffusely, possible gastropathy biopsies taken in the antrum and body. Normal duodenum and distal duodenum. Pathology did come back. Final diagnosis is mucosal focal changes of chronic gastritis. Changes suggestive of fundic gland hyperplasia and with focal granular atypia. Vasal reactive granular changes. No h-pylori organism seen. Squamous cell mucosa not identified. Metaplasia is not identified. (1) is not identified. DIAGNOSTIC DATA Unit #: [id number] #: [id number] Patient: NATALYA CROOK LABORATORY: On the day of discharge the patient's labs are BMP, glucose 314, BUN 30, creatinine 5.4, sodium 130, potassium 4.2, chloride 93, CO2 28, calcium 9.4, magnesium 2.1. CBC with white blood cell count 4.3, RBC 3.39, hemoglobin 8.5, hematocrit 26.1, MCV 77.1, MCH 25.2, MCHC 32, RDW 2.0, platelets 192, MPV 8.8. IMAGING: The patient had two-view chest x-ray on 10/27/2016 with findings of right pleural effusion with fluid in the minor and major fissures as well as costophrenic angle. Mild interstitial prominence throughout the lungs, suggesting minimal fluid overload. There is a dictated x-ray consult by Dr. Patten, stating that in reviewing the patient's imaging and history there is limited to noncontrast and does not demonstrate splenic vein. The patient's gastric is likely to be the cause of the patient's gastric varices. TIPS would not alleviate or decompress the gastric varices and it was actually recommended possible evaluation for splenectomy. Chest x-ray 10/30/2016 demonstrating worsening pulmonary edema. CT chest without contrast on 11/01/2016, small bilateral effusions, right greater than left. There is pulmonary edema noted. Mild mediastinal adenopathy, probably reactive. Mild anasarca. Mild cardiomegaly. Mild splenomegaly. HOSPITAL COURSE The patient is a 26-year-old male with a past medical history of endstage dialysis on hemodialysis, chronic pancreatitis, essential hypertension, noncompliance. The patient presented to the emergency department due to symptoms of intractable abdominal pain. The patient was hospitalized at our facility from 10/24/2016 to 10/25/2016 secondary to abdominal pain, hypokalemia with hypertensive crisis. Since the time of that discharge he has had persistent intractable abdominal pain. Therefore, the patient presented to the emergency department for reevaluation of his abdominal pain. The patient was admitted and treated with bowel rest and pain control. Gastroenterology with Dr. Jordan was consulted and saw the patient. He performed an EGD and found that the patient had Couch esophagus, but no bleeding was found. The patient was also found to have gastric fundic and cardiac varices as well as gastritis. Biopsy was taken. Please refer to the pathology report as dictated above. Given his gastric and cardiac varices, radiology was asked to evaluate the patient for a TIPS procedure, but the TIPS procedure was not needed at this time. It was questioned if he would need a splenectomy. Surgery with Dr. Delgado of [facility] was consulted, who did not feel that the patient required an emergent splenectomy. Therefore, this can be followed up on an outpatient basis with them. The patient has been receiving dialysis here in the hospital every other day. With that the patient still has symptoms of dyspnea. CT angiogram of the chest and thorax was done, which revealed the patient has bilateral pleural effusions, but it was stated to be small in nature with right greater than left. I have been told by the patient that he is known to have thoracentesis requirements for the pleurisy, but given the small amount it would be more risk of possible pneumothorax puncture of any other complication than benefit to pleural effusion. An extra day of dialysis was done to remove fluid today. The patient was found by the nurses to leave the hospital for a couple of hours on multiple occasions. The patient would ask for pain medicine and when seen the patient is minimally awake. He does get up and he does interact, but he does not stay awake very long. I believe the patient's pulmonary edema is due to his noncompliance with his oral intake. The patient's true Unit #: [id number] #: [id number] Patient: NATALYA CROOK concern today during assessment is if he has enough pain medicine. The patient told me that he will be trying to be seen by Dr. Santo on an outpatient basis for his ongoing pain need, but did ask for a prescription for Grady. DISPOSITION At this time the patient will be discharged home in stable condition. FOLLOWUP 1. It was stressed to follow up with primary care physician within one to two weeks from the point of discharge. 2. Follow up with [facility] for any further needs with splenectomy. 3. Follow up with Dr. Jordan as needed. DIET Renal diet with consistent carbs. ACTIVITY Not restricted. The patient is to ambulate every day as prior to hospitalization. DISCHARGE MEDICATION 1. Sodium bicarb 650 mg p.o. t.i.d. 2. Neurontin 800 mg p.o. t.i.d. 3. Paxil 10 mg p.o. daily. 4. Atorvastatin 80 mg p.o. daily. 5. Coreg 6.25 mg p.o. b.i.d. 6. Norvasc 10 mg p.o. daily. 7. Epogen 10,000 units subcutaneous Saturday, Saturday and Saturday. 8. Clonidine 0.3 mg p.o. t.i.d. 9. Hydralazine 100 mg p.o. t.i.d. 10. Levemir 13 units subcutaneous in the morning, 12 units subcutaneous in the evening. 11. NovoLog 5 units subcutaneous t.i.d. with meals. 12. Reglan 5 mg p.o. t.i.d. 13. Zantac 150 mg p.o. b.i.d. 14. Carafate 1 mg p.o. t.i.d. 15. Hydrocodone with acetaminophen 5/325 mg 1 tablet q.6 h. p.r.n. pain. Prescription for 20 was given. 16. Renvela 800 mg t.i.d. with meals. 17. Isosorbide mononitrate 60 mg p.o. daily. This discharge took 45 minutes to include patient education and to coordinate care. Dictated by... Dylon Lauren PA-C for Ludin Zamarripa TD: 11/02/2016 08:45 JOB #: [id number] Unit #: [id number] #: [id number] Patient: NATALYA CROOK DISCHARGE SUMMARY Page 1 of 1 X X DISCHARGE SUMMARY
--- NOTE | ~2016-10-27 | CR63 ---
[facility] A Service of [facility] & [facility] RADIOLOGY TEXT RESULTS PATIENT: NATALYA CROOK LOCATION: [facility] 569-01 : [birth year] UNIT #: [id number] AGE: [address]: Burak Dukes MD SEX: M ORDER DR: [id number] [facility] [address]. [place], [place] [address] [id number] I MR#: [id number] Acc #: [id number] NAME: NATALYA CROOK : 1990 SEX: M STUDY DATE/TIME: 10/27/2016 3:25 UNIT: [facility] ROOM: [facility] STUDY DESCRIPTION: CR Chest 2 View Attending Physician: Burak Dukes M.D. Ordering Physician: Eddie Lerner Aprn Primary Care Physician: No Primary Care Physician MEDICAL IMAGING REPORT This report is preliminary unless electronic signature is present EXAM PA and lateral chest HISTORY Shortness of air, chest pain, abdomen pain beginning today. COMPARISON 10/24/2016 FINDINGS Today's PA and lateral view of the chest show a right pleural effusion with fluid in the minor and major fissures as well as in the costophrenic angle. There is mild interstitial prominence throughout the lungs suggesting minimal fluid overload. Heart size normal. Dictated by... Nicolas Hogan M.D. THIS IS AN ELECTRONICALLY VERIFIED REPORT Nicolas Hogan M.D. at 10/28/2016 12:29 AM PATRIC/he TD: 10/27/2016 23:06 JOB #: [id number] MEDICAL IMAGING REPORT Page 1 of 1 COPY
--- NOTE | ~2016-10-27 | OR ---
Unit #: [id number] #: [id number] Patient: NATALYA CROOK [id number] [address] [place], [place] [address] [id number] I MR#: [id number] NAME: NATALYA CROOK ROOM: 220 Date of Procedure: 10/29/2016 Admission Date: 10/27/2016 Surgeon: Donte Jordan M.D. : 1990 Attending Physician: Althea Johnson M.D. OPERATIVE REPORT JOB NOTE: CC: PRIMARY CARE PHYSICIAN INDICATIONS FOR PROCEDURE Esophagogastroduodenoscopy with biopsies. INDICATIONS FOR PROCEDURE The patient with significant upper abdominal pain persistent. Other evaluation so far has been negative. MEDICATIONS Monitored anesthesia. POSTOPERATIVE FINDINGS 1. Small segment Couch esophagus. No biopsies taken because of risk of bleeding. 2. Prominent gastric fundic and cardiac varices. 3. Gastritis diffusely, possible gastropathy. Biopsies taken in the antrum and body. 4. Normal duodenum and distal duodenum. PLAN We will consider evaluation for TIPS procedure. Continue PPI therapy. Please see inpatient orders for details. DESCRIPTION OF PROCEDURE The patient was explained of the procedure, risks, and benefits along with risks and benefits of anesthesia. He was brought to the endoscopy room. Propofol anesthesia was given. Bite block was placed. The scope was passed down the mouth into the esophagus, stomach, duodenum, and distal duodenum. Findings as described. Antrum and body were biopsied. Gently, the scope was pulled out. He tolerated it well. Dictated by... Ludin Nash/abraham TD: 10/30/2016 02:14 JOB #: [id number] Unit #: [id number] #: [id number] Patient: NATALYA CROOK OPERATIVE REPORT Page 1 of 1 X Donte Jordan MD X PROCEDURE OPERATIVE NOTE
--- NOTE | ~2016-10-27 | XA231 ---
[facility] A Service of [facility] RADIOLOGY TEXT RESULTS PATIENT: NATALYA CRUZ LOCATION: [facility] : [birth year] UNIT #: [id number] AGE: [address]: Althea Johnson MD SEX: M ORDER DR: [id number] [address] [address] [id number] I MR#: [id number] Acc #: [id number] NAME: NATALYA CRUZ : 1990 SEX: M STUDY DATE/TIME: 10/30/2016 10:53 UNIT: C2A ROOM: 220 STUDY DESCRIPTION: XA Consult Attending Physician: Althea Johnson M.D. Ordering Physician: Donte Jordan M.D. Primary Care Physician: No Primary Care Physician MEDICAL IMAGING REPORT This report is preliminary unless electronic signature is present INTERVENTIONAL RADIOLOGY CONSULTATION REASON FOR CONSULTATION Gastric varices HISTORY OF PRESENT ILLNESS Mr. Cruz is a 26-year-old male who presented with intractable abdominal pain and underwent a recent EGD, demonstrating multiple esophageal varices. He is referred for evaluation for TIPS procedure. PAST MEDICAL HISTORY 1. Renal failure, status post renal transplantation at age 12. This has failed, and the patient is currently on dialysis. 2. History of heart failure, degree and etiology unknown. 3. Chronic hypertension. 4. History of multiple bouts of chronic pancreatitis. PAST SURGICAL HISTORY Renal transplantation, age 12. SOCIAL HISTORY Noncontributory FAMILY HISTORY Noncontributory ALLERGIES CODEINE, AMOXICILLIN, IODINATED CONTRAST MEDIA. CURRENT MEDICATIONS Please see patient's in-patient chart. [facility] A Service of [facility] RADIOLOGY TEXT RESULTS PATIENT: NATALYA CRUZ LOCATION: A : [birth year] UNIT #: [id number] AGE: [address]: Althea Johnson MD SEX: M ORDER DR: REVIEW OF SYSTEMS Noncontributory PHYSICAL EXAMINATION Deferred DIAGNOSTIC STUDIES Previous CT scans from the medical center at [place], dating back to 12/06/2007. These show small atrophic kidneys with a right iliac fossa transplant kidney. The patient has acute pancreatitis on the study of 12/06/2007. Of note is nonvisualization of the splenic vein. ASSESSMENT AND PLAN Mr. Cruz is a 26-year-old with chronic renal failure, hypertension, diabetes, a questionable heart history and recurrent chronic pancreatitis. Review of the patient's other consultations does suggest the patient had a ruptured pseudocyst at one time and underwent a partial pancreatectomy. In any case, review of the CTs, all of which are noncontrasted, do not demonstrate the splenic vein. This is likely the cause of the patient's gastric varices. As such, TIPS would not alleviate or decompress the gastric varices. The patient is apparently currently asymptomatic related to the varices. I would recommend that the patient be managed endoscopically, should he have any signs or symptoms of bleeding, which he has not. I would, at that time, suggest the patient be evaluated surgically for splenectomy. Dictated by... Natalya Patten M.D. THIS IS AN ELECTRONICALLY VERIFIED REPORT Natalya Patten M.D. at 10/31/2016 9:31 AM Olga TD: 10/30/2016 17:52 JOB #: [id number] MEDICAL IMAGING REPORT Page 1 of 1 COPY
--- NOTE | ~2016-10-27 | CR72 ---
[facility] A Service of [facility] & [facility] RADIOLOGY TEXT RESULTS PATIENT: NATALYA CROOK LOCATION: C2A : [birth year] UNIT #: [id number] AGE: [address]: Althea Johnson MD SEX: M ORDER DR: [id number] [facility] [address] [place], [place] [address] [id number] I MR#: [id number] Acc #: [id number] NAME: NATALYA CROOK : 1990 SEX: M STUDY DATE/TIME: 10/30/2016 11:53 UNIT: C2A ROOM: 220 STUDY DESCRIPTION: CR Chest Single View Portable Attending Physician: Althea Johnson M.D. Ordering Physician: Staff Doctor Not On Primary Care Physician: No Primary Care Physician MEDICAL IMAGING REPORT This report is preliminary unless electronic signature is present EXAM Portable chest x-ray 10/30/2016 HISTORY Dyspnea. Fluid overload swelling, short of air 1 day duration. FINDINGS AP radiograph of the chest is presented. Comparison 10/27/2016 03:25 hours. Stable cardiac enlargement. There has been worsening of the patient's pulmonary edema. Underlying vascular congestion persists. There are increased linear interstitial markings throughout the lungs and extending from the central lung zones toward the periphery bilaterally. Ill-defined perihilar and basilar patchy airspace densities slightly more pronounced as well and felt to reflect airspace edema. Small left effusion probably unchanged. Small right effusions stable to marginally increased. I believe it tracks into the minor fissure and there is an ill-defined somewhat amorphous area of density superimposed over the right lateral lower lung zone probably representing pleural fluid extending into the major fissure and/or airspace edema. Continued attention at followup recommended. No pneumothorax. Dictated by... Natalya Reina M.D. THIS IS AN ELECTRONICALLY VERIFIED REPORT Natalya Reina M.D. at 10/31/2016 2:37 PM DAJUAN/he TD: 10/30/2016 14:24 JOB #: [id number] MEDICAL IMAGING REPORT Page 1 of 1 COPY
--- NOTE | ~2016-10-27 | HP ---
Unit #: [id number] #: [id number] Patient: NATALYA CROOK [id number] [address] [place], [place] [address] [id number] I MR#: [id number] NAME: NATALYA CROOK ROOM: 220 Age: 26 Sex: M Admission Date: 10/27/2016 : 1990 Attending Physician: Althea Johnson M.D. Primary Care Physician: No Primary Care Physician HISTORY AND PHYSICAL REASON FOR ADMISSION Intractable abdominal pain. HISTORY OF PRESENT ILLNESS The patient is a 26-year-old male recently admitted to our hospital from 10/24/2016 to 10/25/2016 secondary to abdominal pain, hyperkalemia, as well as hypertensive crisis. Through that hospital course he was dialyzed on two different occasions. His blood pressure improved and was stable. He underwent a 2D echocardiogram, which showed a normal ejection fraction and no evidence of any systolic heart failure. He was discharged to home with the understanding that he would followup with his development technologist, as well as his dialysis per routine. Apparently when he went home he began developing intractable abdominal pain. He now tells me that he has been diagnosed with gastroparesis in the past, as well as has a prior history of chronic pancreatitis. I do not have any verified records. He originally came from [place] and has recently relocated to [place]. He does not have a prior care provider here, nor does he have a ground products director. He states that he is unable to tolerate anything orally, is unable to eat at home, therefore, presented for the same. PAST MEDICAL HISTORY End stage renal disease, prior history of kidney transplant age 12. Prior history of chronic pancreatitis not verified, gastroparesis not verified, hypertension, noncompliance. PAST SURGICAL HISTORY Transplant kidney at age 12. SOCIAL HISTORY No alcohol use. Not tobacco use. Patient denies illicit drug use. FAMILY HISTORY Reviewed, noncontributory and nonpertinent in current condition. ALLERGIES Codeine, amoxicillin, iodine, contrast dye. HOME MEDICATIONS Unit #: [id number] #: [id number] Patient: NATALYA CROOK Hydralazine, sodium bicarbonate, clonidine, minoxidil, Norvasc, Neurontin, Lantus, Humalog, as well as Lipitor, Paxil, Reglan, Zantac, Carafate, Imdur, Procrit. REVIEW OF SYSTEMS Please see HPI. Twelve point otherwise negative, except for those positive in the HPI. PHYSICAL EXAMINATION VITAL SIGNS: Temperature 98.2, pulse 80, respiratory rate 22, blood pressure 156/129. GENERAL APPEARANCE: Patient is a 26-year-old male sitting comfortably in no acute distress. He is currently eating his lunch and does not appear to have any nausea or any abdominal pain. HEENT: Head exam - atraumatic. Ear exam - tympanic membranes do not reveal any erythema or injection. NECK: Supple. CVS: S1, S2, without murmur. RESPIRATORY: Clear. GI/ABDOMEN: Distention noted, but nontender. EXTREMITIES: Lower extremities have no evidence of any lower extremity edema. NEUROLOGICAL EXAM: The patient is A and O x3 with no evidence of any focal nerve deficits. DIAGNOSTIC STUDIES LABORATORY STUDIES: At the time of admission include a BMP showing creatinine 6.4, GFR 10.9, glucose 264. Lipase normal. CBC - hemoglobin 8.6, white count 5.2. INITIAL ADMISSION DIAGNOSIS 1. Intractable abdominal pain. 2. Intractable nausea and vomiting. 3. End stage renal disease. 4. Diabetes. 5. Questionable history of gastroparesis. 6. Questionable history of chronic pancreatis. 7. Likely drug seeking/narc seeking behavior. 8. Hypertension. 9. Hyperlipidemia. 10. Questionable compliance with medications. PLAN Admission telemetry floor p.r.n. pain medication. Patient recently underwent a CT abdomen and pelvis prior admission on 10/24/2016, which was negative. Consult GI for evaluation. He tells me that he is allergic to contrast media and therefore, I am not sure if upper GI/ barium swallow exam would or could be done. Consideration may be given for followup as an outpatient at the [facility] with Dr. Tidwell for ongoing evaluation and consideration for gastroparesis. I will convert his Reglan p.o. into IV. Consultation will be also placed to nephrology, Dr. Bui, for his routine dialysis. Further hospital course to follow. Dictated by Althea Johnson M.D. Unit #: [id number] #: [id number] Patient: NATALYA CROOK ISChandni/sujatha TD: 10/30/2016 07:21 JOB #: [id number] HISTORY AND PHYSICAL Page 1 of 1 X Althea Johnson MD HISTORY AND PHYSICAL
[~2016-10-27 02:35] MED LIST: ATORVASTATIN CA80 MG PO; CARAFATE1 GM PO; CLONIDINE HCL0.3 MG PO; HUMALOG100 UNIT/1 SUBQ; HYDRALAZINE HC100 MG PO; ISOSORBIDE MONO60 M1 PO; LANTUS100 U/ML SUBQ; MINOXIDIL2.5 MG PO; NEURONTIN800 MG PO; NORVASC10 MG PO; PAXIL10 MG PO; PROCRIT SUBQ; REGLAN5 MG PO; SODIUM BICARBO650 MG PO; ZANTAC150 MG PO
[2016-10-27 03:29] LABS: EOSINOPHIL# 0.3 X10e3 (0-0.7); EOSINOPHIL% 6.2 % (0.0-7.0); HEMOGLOBIN 8.6 gm/dL (13.0-16.0); LYMPHOCYTE# 0.8 X10e3 (1.0-3.5); LYMPHOCYTE% 16.2 % (17.0-45.0); MEAN CELL VOLUME 76.9 FL (83-96); MEAN CORPUSCULAR HEMOGLOBIN 24.5 PG (28-34); MEAN CORPUSCULAR HGB CONC 31.9 g/dL (30-36); MEAN PLATELET VOLUME 8.6 FL (6.5-11.5); MONOCYTE# 0.3 X10e3 (0-1.0); MONOCYTE% 5.6 % (3.0-12.0); NEUTROPHIL# 3.7 X10e3 (1.5-7.1); PLATELET COUNT 149 X10e3 (140-420); RED BLOOD COUNT 3.51 X10e (3.90-5.60); RED CELL DISTRIBUTION WIDTH 18.8 % (11.0-15.5)
[2016-10-27 03:31] LABS: DIFF IND NO; WHITE BLOOD COUNT 5.2 X10e3 (4.0-10.5)
[2016-10-27 03:38] LABS: POC - CKMB 2.1 ng/mL (0.0-7.9); POC - TROPONIN <0.05 ng/mL (<=0.05)
[2016-10-27 03:56] LABS: ALBUMIN SERUM 3.4 g/dL (3.5-5.0); BILIRUBIN,TOTAL 1.3 mg/dL (0.2-2.0); BUN/CREATININE RATIO 5.25; CALCIUM SERUM 9.1 mg/dL (8.4-10.2); CREATININE SERUM 5.9 mg/dL (0.6-1.4); POTASSIUM 4.3 mmol/L (3.5-5.1); PROTEIN TOTAL SERUM 6.9 g/dL (6.0-8.3)
[2016-10-27 09:52] LABS: BUN/CREATININE RATIO 5.31; CREATININE SERUM 6.4 mg/dL (0.6-1.4); GLOM FILT RATE Estimated 10.9 mL/min (>60)
[2016-10-28 10:30] LABS: HEMATOCRIT 25.4 % (38.0-50.0); HEMOGLOBIN 8.1 gm/dL (13.0-16.0); MEAN CELL VOLUME 76.7 FL (83-96); MEAN CORPUSCULAR HEMOGLOBIN 24.5 PG (28-34); MEAN PLATELET VOLUME 8.6 FL (6.5-11.5); RED BLOOD COUNT 3.32 X10e (3.90-5.60); WHITE BLOOD COUNT 4.5 X10e3 (4.0-10.5)
[2016-10-28 11:03] LABS: ALBUMIN SERUM 3.1 g/dL (3.5-5.0); BUN/CREATININE RATIO 5.2; CALCIUM SERUM 9.7 mg/dL (8.4-10.2); GLOM FILT RATE Estimated 14.7 mL/min (>60); MAGNESIUM 1.8 mg/dL (1.6-3.0); POTASSIUM 4.7 mmol/L (3.5-5.1); PROTEIN TOTAL SERUM 6.6 g/dL (6.0-8.3)
[2016-10-29 06:20] LABS: HEMATOCRIT 24.1 % (38.0-50.0); HEMOGLOBIN 7.8 gm/dL (13.0-16.0); MEAN CELL VOLUME 76.7 FL (83-96); MEAN CORPUSCULAR HEMOGLOBIN 24.7 PG (28-34); MEAN CORPUSCULAR HGB CONC 32.2 g/dL (30-36); MEAN PLATELET VOLUME 8.5 FL (6.5-11.5); RED BLOOD COUNT 3.14 X10e (3.90-5.60)
[2016-10-29 07:06] LABS: BILIRUBIN,TOTAL 0.9 mg/dL (0.2-2.0); BUN/CREATININE RATIO 5.21; CALCIUM SERUM 9.3 mg/dL (8.4-10.2); CREATININE SERUM 6.9 mg/dL (0.6-1.4); GLOM FILT RATE Estimated 9.9 mL/min (>60); POTASSIUM 4.7 mmol/L (3.5-5.1); PROTEIN TOTAL SERUM 6.4 g/dL (6.0-8.3)
[2016-10-30 06:43] LABS: HEMATOCRIT 24.7 % (38.0-50.0); HEMOGLOBIN 7.9 gm/dL (13.0-16.0); MEAN CELL VOLUME 76.9 FL (83-96); MEAN CORPUSCULAR HEMOGLOBIN 24.6 PG (28-34); MEAN PLATELET VOLUME 8.9 FL (6.5-11.5); RED BLOOD COUNT 3.21 X10e (3.90-5.60); RED CELL DISTRIBUTION WIDTH 19.2 % (11.0-15.5); WHITE BLOOD COUNT 4.7 X10e3 (4.0-10.5)
[2016-10-30 07:01] LABS: BILIRUBIN,TOTAL 0.9 mg/dL (0.2-2.0); BUN/CREATININE RATIO 6.31; CREATININE SERUM 5.7 mg/dL (0.6-1.4); GLOM FILT RATE Estimated 12.5 mL/min (>60); POTASSIUM 5.4 mmol/L (3.5-5.1); PROTEIN TOTAL SERUM 6.5 g/dL (6.0-8.3)
[2016-10-31 07:06] LABS: HEMOGLOBIN 7.4 gm/dL (13.0-16.0); MEAN CORPUSCULAR HEMOGLOBIN 24.6 PG (28-34); MEAN CORPUSCULAR HGB CONC 32.3 g/dL (30-36); MEAN PLATELET VOLUME 8.7 FL (6.5-11.5); RED BLOOD COUNT 3.02 X10e (3.90-5.60); RED CELL DISTRIBUTION WIDTH 19.4 % (11.0-15.5); WHITE BLOOD COUNT 4.8 X10e3 (4.0-10.5)
[2016-10-31 07:28] LABS: BUN/CREATININE RATIO 6.4; CALCIUM SERUM 9.3 mg/dL (8.4-10.2); CREATININE SERUM 7.5 mg/dL (0.6-1.4); POTASSIUM 4.9 mmol/L (3.5-5.1)
[2016-11-01 05:42] LABS: HEMATOCRIT 26.1 % (38.0-50.0); HEMOGLOBIN 8.5 gm/dL (13.0-16.0); MEAN CORPUSCULAR HEMOGLOBIN 25.2 PG (28-34); MEAN CORPUSCULAR HGB CONC 32.7 g/dL (30-36); MEAN PLATELET VOLUME 8.8 FL (6.5-11.5); RED BLOOD COUNT 3.39 X10e (3.90-5.60); WHITE BLOOD COUNT 4.3 X10e3 (4.0-10.5)
[2016-11-01 06:14] LABS: BUN/CREATININE RATIO 5.55; CALCIUM SERUM 9.4 mg/dL (8.4-10.2); GLOM FILT RATE Estimated 13.4 mL/min (>60); MAGNESIUM 2.1 mg/dL (1.6-3.0); POTASSIUM 4.8 mmol/L (3.5-5.1)
[2016-11-01 06:17] LABS: CREATININE SERUM 5.4 mg/dL (0.6-1.4)
[2016-11-01 07:41] LABS: HA AB IGM (HEPPAN) Nonreactive (()); HB CORE AB IGM (HEPPAN) Nonreactive (Nonreactive); HB S AG (HEPPAN) Nonreactive (Nonreactive); HEP C AB (HEPPAN) Nonreactive (Nonreactive); HEP C AB SIGNAL TO CUTOFF 0.09 ratio (<1.00)
[2016-11-01] MEDS ORDERED: LEVEMIR100 UNITS/ SUBQ ×2 (14:54)
[2016-11-01] MEDS ORDERED: NOVOLOG100 UNITS/ SUBQ (14:55)
[2016-11-01] MEDS ORDERED: RENVELA800 MG PO (14:57)
[2016-11-01] MEDS ORDERED: HYDROCODON-ACE1 EAC7 PO (15:02)
== END 2016-11-01 15:42 | disposition home or self-care (01) | DRG 391 ==
LOC: CED 02:35 → CEDOF 04:35 → C5C 10:55 → C2A 10-29 18:20
PROVIDERS: Family Medicine; Internal Medicine; Internal Medicine Nephrology; Nurse Practitioner Family; Physician Assistant Medical
PROC: 5A1D60Z (ICD-10-PCS; principal; 2016-10-27)
PROC: 0DB78ZX Excision of Stomach, Pylorus, Via Natural or Artificial Opening Endoscopic, Diagnostic (ICD-10-PCS; 2016-10-29 14:00)
PROC: 30233N1 Transfusion of Nonautologous Red Blood Cells into Peripheral Vein, Percutaneous Approach (ICD-10-PCS; 2016-10-31)
DX: R10.9 Unspecified abdominal pain (principal); N18.6 End stage renal disease; J81.1 Chronic pulmonary edema; T86.12 Kidney transplant failure; E87.1 Hypo-osmolality and hyponatremia; I12.0 Hypertensive chronic kidney disease with stage 5 chronic kidney disease or end stage renal disease; E11.22 Type 2 diabetes mellitus with diabetic chronic kidney disease; E11.65 Type 2 diabetes mellitus with hyperglycemia; Z99.2 Dependence on renal dialysis; Z79.84 Long term (current) use of oral hypoglycemic drugs; Z91.14 Patient's other noncompliance with medication regimen; Z76.5 Malingerer [conscious simulation]; E87.5 Hyperkalemia; Z88.1 Allergy status to other antibiotic agents; Z88.5 Allergy status to narcotic agent; Z88.8 Allergy status to other drugs, medicaments and biological substances; Z91.041 Radiographic dye allergy status; K22.70 Barrett's esophagus without dysplasia; I86.4 Gastric varices; K29.70 Gastritis, unspecified, without bleeding; E87.70 Fluid overload, unspecified
CPT/HCPCS: 36415; 71010; 71020; 71250; 76140; 80048; 80053; 80074; 80307; 82150; 82553; 82947; 83690; 83735; 84100; 84484; 85025; 85027; 86850; 86900; 86901; 86923; 88305; 88312; 93005; 96374; 96375; 99285; J0885; J1170; J1644; J1815; J2270; J2405; J2765; P9016; Q4081

== ENCOUNTER 2016-11-05 02:17 | Inpatient (IN) | payer OTHER ==
--- NOTE | ~2016-11-05 | CR72 ---
[facility] A Service of [facility] RADIOLOGY TEXT RESULTS PATIENT: NATALYA CROOK LOCATION: CEDOF : 89 UNIT #: [id number] AGE: [address]: Mian Martin MD SEX: M ORDER DR: [id number] [facility] [address] [facility]. [place], [place] [address] [id number] I MR#: [id number] Acc #: [id number] NAME: NATALYA CROOK : 1990 SEX: M STUDY DATE/TIME: 11/05/2016 2:00 UNIT: CEDOF ROOM: 29686 STUDY DESCRIPTION: CR Chest Single View Portable Attending Physician: Mian Martin M.D. Ordering Physician: Aly Nugyen M.D. Primary Care Physician: Primary Care Physician No MEDICAL IMAGING REPORT This report is preliminary unless electronic signature is present EXAM AP portable chest, 11/05/2016 HISTORY 26-year-old male in the ED complaining of new onset chest pain and shortness of air beginning tonight prior to arrival. History of CHF and diabetes. TECHNIQUE AP portable upright chest x-ray. FINDINGS Moderate cardiomegaly, pulmonary venous redistribution, mild diffuse interstitial pulmonary edema and small, partially loculated right pleural effusions are noted. These findings are unchanged since chest x-ray 10/30/[address] 11/01/2016. IMPRESSION Cardiomegaly with diffuse interstitial edema and small right pleural effusion. No change since 10/30/2016. Dictated by... Osorio Velásquez M.D. THIS IS AN ELECTRONICALLY VERIFIED REPORT Osorio Velásquez M.D. at 11/05/2016 4:07 AM VERNA/saumya TD: 11/05/2016 03:51 JOB #: [id number] [facility] A Service of [facility] RADIOLOGY TEXT RESULTS PATIENT: NATALYA CROOK LOCATION: CEDOF : 89 UNIT #: [id number] AGE: [address]: Mian Martin MD SEX: M ORDER DR: MEDICAL IMAGING REPORT Page 1 of 1 COPY
--- NOTE | ~2016-11-05 | EKG ---
PATIENT: NATALYA CROOK UNIT #: [id number] Ventricular Rate: 88 BPM Atrial Rate: 88 BPM P-R Interval: 160 ms QRS Duration: 90 ms Q-T Interval: 362 ms QTC Calculation(Bezet): 438 ms P [place]: 27 degrees Calculated R [place]: 2 degrees Calculated T [place]: 33 degrees Diagnosis Line: Normal sinus rhythm Diagnosis Line: Possible Left atrial enlargement Diagnosis Line: Borderline ECG Diagnosis Line: When compared with ECG of 27-OCT-2016 02:47, Diagnosis Line: No significant change was found Diagnosis Line: Confirmed by DAX LANZA MD ([id number]) on 11/05/2016 Diagnosis Line: 10:12:21 PM INTERPRETING MD: MYLA TARANGO
--- NOTE | ~2016-11-05 | HP ---
Unit #: [id number] #: [id number] Patient: NATALYA CROOK [id number] [address] [place], [place] [address] [id number] I MR#: [id number] NAME: NATALYA CROOK ROOM: 312 Age: 26 Sex: M Admission Date: 11/05/2016 : 1990 Attending Physician: Mian Martin M.D. Primary Care Physician: No Primary Care Physician HISTORY AND PHYSICAL CHIEF COMPLAINT Abdominal pain. HISTORY OF PRESENT ILLNESS The patient is a 26-year-old male who presents to [facility] emergency department complaining of abdominal pain. He states that it is primarily in the epigastric area. It began two hours prior to presentation. It is severe and nonradiating. Associated with nausea but no vomiting and there are no alleviating factors. PAST MEDICAL HISTORY End stage renal disease, status post kidney transplant age 12, history of chronic pancreatitis, gastroparesis, hypertension, diabetes. PAST SURGICAL HISTORY The aforementioned kidney transplant. SOCIAL HISTORY The patient lives with parents. Denies alcohol, tobacco or illicit drug use. FAMILY HISTORY No known kidney disease. Hypertension. ALLERGIES Codeine, amoxicillin, iodine and contrast dye. HOME MEDICATIONS Hydrocodone and acetaminophen 1 p.o. q.6 hours p.r.n.; Renvela 800 mg p.o. t.i.d. with meal; NovoLog 5 units subcu t.i.d. with meal; Levemir 13 units subcu in the morning and 12 units at bedtime; Epogen subcu with dialysis Saturday, , and Saturday; isosorbide mononitrate 60 mg p.o. daily; Paxil 10 mg daily; Reglan 5 mg p.o. t.i.d.; Zantac 150 mg p.o. b.i.d.; Carafate 1 gm p.o. t.i.d.; atorvastatin 80 mg p.o. daily; Norvasc 10 mg p.o. daily; Neurontin 800 mg p.o. t.i.d.; minoxidil 2.5 mg p.o. daily; sodium bicarb 650 mg p.o. t.i.d.; clonidine 0.3 mg p.o. t.i.d.; hydralazine 100 mg p.o. t.i.d. REVIEW OF SYSTEMS Ten point review of systems obtained. Negative except as per HPI. PHYSICAL EXAMINATION VITAL SIGNS: Temperature 98.2, pulse 89, blood pressure 189/112. GENERAL: 26-year-old male in no acute distress, appears stated age. Unit #: [id number] #: [id number] Patient: NATALYA CROOK HEENT: Pupils equally round. Extraocular movements intact. Mucous membranes dry. NECK: Supple. No JVD or lymphadenopathy. CARDIAC: Regular rate and rhythm. No gallops or rubs. 3/6 systolic ejection murmur. LUNGS: Clear to auscultation bilaterally. ABDOMEN: Mildly tender to palpation in epigastric area, otherwise soft, nondistended. No hepatosplenomegaly. EXTREMITIES: No clubbing, cyanosis or edema. They are warm and dry. PSYCH: Alert and oriented x3. Affect is appropriate. NEUROLOGIC: Cranial nerves II-XII intact grossly. Patient moves all extremities equal and with purpose. SKIN: No rashes, bruises or ulcer. MUSCULOSKELETAL: No muscle joint pain and no muscle joint swelling. DIAGNOSTIC STUDIES LABORATORY STUDIES: Glucose 551, creatinine 7.9 with BUN 51, sodium 129, potassium 6.6. BMP 1,235. Hemoglobin 8.4. ASSESSMENT AND PLAN 1. Abdominal pain likely secondary to the patient's gastritis, which was noted on EGD last week: I started the patient on b.i.d. PPI and Mylanta. 2. Hyperkalemia: Patient has some slightly peaked T waves. Calcium has been given in the emergency department. Consult has been placed to nephrology for hemodialysis. The patient is asymptomatic. Denies chest pain, shortness of breath, palpitations. 3. Hypertension: Continue home meds. 4. Diabetes: Patient's blood sugar is 500 upon presentation. He received 15 units of regular insulin in the emergency department. I will continue the patient's home medications. 5. Prophylaxis: The patient is started on SCDs. Dictated by Mian Martin M.D. JULI/sujatha TD: 11/05/2016 05:32 JOB #: [id number] HISTORY AND PHYSICAL Page 1 of 1 X Mian Martin MD HISTORY AND PHYSICAL
--- NOTE | ~2016-11-05 | DS ---
Unit #: [id number] #: [id number] Patient: NATALYA CROOK [id number] [address] [address] [id number] I MR#: [id number] NAME: NATALYA CROOK ROOM: [facility] Age: 26 Sex: M Admission Date: 11/05/2016 : 1990 Discharge Date: 11/05/2016 Attending Physician: Althea Johnson M.D. Primary Care Physician: No Primary Care Physician DISCHARGE SUMMARY REASON FOR ADMISSION Abdominal pain. HISTORY OF PRESENT ILLNESS/HOSPITAL COURSE Patient is a 26-year-old male who presented to [facility] with a chief complaint of abdominal pain (1) discomfort primarily in the epigastric area. He was admitted after it was noted he did have elevated potassium level. His blood sugar was also 500 on day of admission. He was admitted and consultation was placed with nephrology services. Patient underwent hemodialysis. He was cleared from renal services for discharge. Overall, his long-term prognosis is poor secondary to longstanding history of noncompliance. DISCHARGE INSTRUCTIONS He was instructed to follow up as an outpatient for his routine dialysis as well as Dr. Jordan of gastroenterology services for continued followup in regards to abdominal pain. FINAL DISCHARGE DIAGNOSES 1. Abdominal pain. 2. End stage renal disease. 3. Pulmonary edema. 4. Volume overload. 5. Longstanding history of noncompliance. 6. Chronic bilateral pleural effusions. 7. Chronic pancreatitis. 8. Hypertension. 9. Type 2 diabetes. 10. Drug seeking behavior. DISCHARGE MEDICATIONS Remain unchanged from home medications. Dictated by... Althea Johnson M.D. Unit #: [id number] #: [id number] Patient: NATALYA CROOK ISN/pc TD: 11/09/2016 13:26 JOB #: [id number] DISCHARGE SUMMARY Page 1 of 1 X Althea Johnson MD DISCHARGE SUMMARY
--- NOTE | ~2016-11-05 | CO ---
Unit #: [id number] #: [id number] Patient: NATALYA CROOK [id number] [address] [place], [place] [address] [id number] I MR#: [id number] NAME: NATALYA CROOK ROOM: 312 Age: 26 Sex: M Admission Date: 11/05/2016 : 1990 Attending Physician: Althea Johnson M.D. Primary Care Physician: No Primary Care Physician CONSULTATION REPORT REASON FOR CONSULTATION Renal failure and hyperkalemia. HISTORY OF PRESENT ILLNESS This is a 26-year-old male with significant past medical history of ESRD, started on hemodialysis for the last one year but came to the hospital with some epigastric pain and found to have potassium of 6.6. Got hemodialysis overnight. Feeling much better than before. No chest pain but there was some shortness of breath, and he has gained a significant amount of fluid. He is not compliant with diet and fluid intake. PAST MEDICAL HISTORY Significant for ESRD. SOCIAL HISTORY Lives with his parents. ALLERGIES Codeine, amoxicillin. HOME MEDICATIONS Reviewed. PHYSICAL EXAMINATION VITAL SIGNS: Blood pressure has improved since admission after dialysis. HEAD AND NECK: Pupils are reactive to light. Extraocular movements are intact. Neck is supple. No JVD. CHEST: Patient has bilateral air entry. No wheeze. No crackle. HEART: Regular rate and rhythm. ABDOMEN: Abdomen is soft, nontender. EXTREMITIES: No edema. NEUROLOGIC: Grossly nonfocal. ASSESSMENT 1. Hyperkalemia. 2. ESRD. 3. Hypertension. 4. Diabetes mellitus. 5. Hyperparathyroidism. DISCUSSION The patient already had hemodialysis. Okay to be discharged. Followup on dialysis again tomorrow morning. Advised the patient to be compliant with diet and fluid intake and should get hemodialysis again tomorrow morning. Unit #: [id number] #: [id number] Patient: NATALYA CROOK I think that will help to bring the potassium level down. Will also help with the patient's volume and with increased blood pressure. Thank you for letting me participate in taking care of this patient. Dictated by... Ludin Butler TD: 11/06/2016 08:35 JOB #: [id number] CONSULTATION REPORT Page 1 of 1 X Joseph Arana MD CONSULTATION REPORT
[~2016-11-05 02:17] MED LIST changes: +HYDROCODON-ACE1 EAC7 PO; +LEVEMIR100 UNITS/ SUBQ; +NOVOLOG100 UNITS/ SUBQ; +RENVELA800 MG PO
[2016-11-05 02:19] LABS: BASOPHIL# 0.1 X10e3 (0-0.3); BASOPHIL% 1.3 % (0-2.5); EOSINOPHIL# 0.4 X10e3 (0-0.7); EOSINOPHIL% 7.9 % (0.0-7.0); HEMATOCRIT 25.9 % (38.0-50.0); HEMOGLOBIN 8.4 gm/dL (13.0-16.0); LYMPHOCYTE# 0.7 X10e3 (1.0-3.5); LYMPHOCYTE% 13.2 % (17.0-45.0); MEAN CELL VOLUME 77.5 FL (83-96); MEAN CORPUSCULAR HEMOGLOBIN 25.3 PG (28-34); MEAN CORPUSCULAR HGB CONC 32.7 g/dL (30-36); MONOCYTE# 0.2 X10e3 (0-1.0); MONOCYTE% 4.2 % (3.0-12.0); NEUTROPHIL% 73.4 % (40-75); PLATELET COUNT 146 X10e3 (140-420); RED BLOOD COUNT 3.34 X10e (3.90-5.60); RED CELL DISTRIBUTION WIDTH 18.5 % (11.0-15.5); WHITE BLOOD COUNT 5.5 X10e3 (4.0-10.5)
[2016-11-05 02:22] LABS: DIFF IND NO
[2016-11-05 02:52] LABS: ALBUMIN SERUM 3.6 g/dL (3.5-5.0); BILIRUBIN, DIRECT 0.2 mg/dL (0.0-0.2); BILIRUBIN,INDIRECT 1.1 mg/dL (0.0-0.9); BILIRUBIN,TOTAL 1.3 mg/dL (0.2-2.0); BUN/CREATININE RATIO 6.45; CALCIUM SERUM 9.6 mg/dL (8.4-10.2); CREATININE SERUM 7.9 mg/dL (0.6-1.4); GLOM FILT RATE Estimated 8.4 mL/min (>60); PROTEIN TOTAL SERUM 7.4 g/dL (6.0-8.3)
[2016-11-05 02:54] LABS: POTASSIUM 6.6 mmol/L (3.5-5.1)
== END 2016-11-05 16:14 | disposition home or self-care (01) | DRG 640 ==
LOC: CED 02:17 → CEDOF 03:32 → C3A PCU 04:33
PROVIDERS: Emergency Medicine
PROC: 5A1D00Z (ICD-10-PCS; principal; 2016-11-05)
DX: E87.5 Hyperkalemia (principal); N18.6 End stage renal disease; T86.12 Kidney transplant failure; E11.22 Type 2 diabetes mellitus with diabetic chronic kidney disease; K29.70 Gastritis, unspecified, without bleeding; Z99.2 Dependence on renal dialysis; Z79.4 Long term (current) use of insulin; E21.3 Hyperparathyroidism, unspecified; Z88.1 Allergy status to other antibiotic agents; Z88.5 Allergy status to narcotic agent; E11.65 Type 2 diabetes mellitus with hyperglycemia
CPT/HCPCS: 36415; 71010; 80048; 80076; 82947; 83880; 85025; 93005; 96374; 96375; 99291; J0610; J1815

== ENCOUNTER 2016-11-08 23:59 | Inpatient (IN) | payer OTHER ==
--- NOTE | ~2016-11-08 | EKG ---
PATIENT: NATALYA CROOK UNIT #: [id number] Ventricular Rate: 101 BPM Atrial Rate: 101 BPM P-R Interval: 168 ms QRS Duration: 92 ms Q-T Interval: 380 ms QTC Calculation(Bezet): 492 ms P [place]: 36 degrees Calculated R [place]: 13 degrees Calculated T [place]: 40 degrees Diagnosis Line: Sinus tachycardia Diagnosis Line: Possible Left atrial enlargement Diagnosis Line: Incomplete right bundle branch block Diagnosis Line: Borderline ECG Diagnosis Line: When compared with ECG of 09-NOV-2016 01:00, Diagnosis Line: No significant change was found Diagnosis Line: Confirmed by DAX LANZA MD ([id number]) on 11/11/2016 Diagnosis Line: 10:47:51 PM INTERPRETING MD: MYLA TARANGO
--- NOTE | ~2016-11-08 | CR72 ---
[facility] A Service of [facility] RADIOLOGY TEXT RESULTS PATIENT: ANTALYA CROOK LOCATION: CEDOF [address]-86 : [birth year] UNIT #: [id number] AGE: [address]: Bianca Carter MD SEX: M ORDER DR: [id number] [facility] [address] [facility]. [place], [place] [address] [id number] MR#: [id number] Acc #: [id number] NAME: NATALYA CROOK : 1990 SEX: M STUDY DATE/TIME: 11/09/2016 0:26 UNIT: [facility] ROOM: STUDY DESCRIPTION: CR Chest Single View Portable Attending Physician: Aly Nguyen M.D. Ordering Physician: Aly Nguyen M.D. Primary Care Physician: Primary Care Physician No MEDICAL IMAGING REPORT This report is preliminary unless electronic signature is present EXAM Chest x-ray 11/09/2016 HISTORY 26-year-old male in the ED complaining of 2-day history of shortness of air and chest pain. TECHNIQUE AP portable upright chest x-ray. COMPARISON Chest x-ray 11/05/2016. CT chest 11/01/2016. FINDINGS Moderate cardiomegaly, diffuse interstitial pulmonary edema and small right pleural effusion remain present and are unchanged since 11/05/2016. No new airspace consolidation or enlarging pleural effusion. IMPRESSION Cardiomegaly, diffuse interstitial pulmonary edema and right pleural effusion. No change since 11/05/2016. Dictated by... Osorio Velásquez M.D. THIS IS AN ELECTRONICALLY VERIFIED REPORT Osorio Velásquez M.D. at 11/09/2016 6:01 AM VERNA/kyle TD: 11/09/2016 01:53 JOB #: [id number] [facility] A Service of [facility] RADIOLOGY TEXT RESULTS PATIENT: NATALYA CROOK LOCATION: CEDOF [id number] : [birth year] UNIT #: [id number] AGE: [address]: Bianca Carter MD SEX: M ORDER DR: MEDICAL IMAGING REPORT Page 1 of 1 COPY
--- NOTE | ~2016-11-08 | NM69 ---
[facility] A Service of [facility] RADIOLOGY TEXT RESULTS PATIENT: NATALYA CROOK LOCATION: CEDOF [id number] : [birth year] UNIT #: [id number] AGE: [address]: Althea Johnson MD SEX: M ORDER DR: [id number] [facility] [address] [place], [place] [address] [id number] I MR#: [id number] Acc #: [id number] NAME: NATALYA CROOK : 1990 SEX: M STUDY DATE/TIME: 11/09/2016 8:46 UNIT: CEDOF ROOM: 46767 STUDY DESCRIPTION: NM Pulm Vent and Perf Attending Physician: Althea Johnson M.D. Ordering Physician: Bianca Carter M.D. Primary Care Physician: Primary Care Physician No MEDICAL IMAGING REPORT This report is preliminary unless electronic signature is present EXAM Ventilation/perfusion study of the lungs. HISTORY Central chest pain since last night, difficulty breathing. FINDINGS The ventilation study is done with 34.6 technetium 99m DTPA in aerosol form and the perfusion study was done with 5.53 mCi technetium 99m MAA. There is a chest x-ray from the same day for comparison. The ventilation/perfusion images show no evidence of perfusion defects. There is fluid in the major/minor fissure on the right side due to the small effusion seen on the chest x-ray. IMPRESSION There is effusion and ventilation study is normal except for pleural effusions that are visual in the major and minor fissure on the study and also on the chest x-ray done in the same day. There is no evidence of pulmonary embolus. Dictated by... Nicolas Hogan M.D. THIS IS AN ELECTRONICALLY VERIFIED REPORT Nicolas Hogan M.D. at 11/09/2016 4:49 PM PATRIC/paulo TD: 11/09/2016 10:35 JOB #: [id number] [facility] A Service of [facility] RADIOLOGY TEXT RESULTS PATIENT: NATALYA CROOK LOCATION: [facility] [address] [facility] #: [id number] : [birth year] UNIT #: [id number] AGE: [address]: Althea Johnson MD SEX: M ORDER DR: MEDICAL IMAGING REPORT Page 1 of 1 COPY
--- NOTE | ~2016-11-08 | HP ---
Unit #: [id number] #: [id number] Patient: NATALYA CROOK [id number] [address] [place], [place] [address] [id number] MR#: [id number] NAME: NATALYA CROOK ROOM: 94502 Age: 26 Sex: M Admission Date: 11/09/2016 : 1990 Attending Physician: Bianca Carter M.D. Primary Care Physician: No Primary Care Physician HISTORY AND PHYSICAL CHIEF COMPLAINT Chest pain, uncontrolled diabetes mellitus, congestive heart failure, fluid overload. HISTORY This 26-year-old male with end stage renal failure on hemodialysis, hypertension, type 1 diabetes mellitus, was admitted for complaints of chest pain and shortness of breath. The patient completed dialysis yesterday. He states that evening he developed anterior nonradiating chest pain worse with inspiration, and felt short of breath. He presented to this emergency department late last evening with an O2 saturation of 745 on room air. However, he usually uses 2 L of oxygen per nasal cannula. Oxygen was placed and the patient's O2 sats are improved. His chest x-ray shows interstitial edema, which was unchanged from before. His blood pressure was high at 176/94. He was given 3 sublingual nitroglycerin without improvement of his chest pain along with an inch of nitropaste. He was given IV Vasotec, hydrocodone. His serum glucose was initially 670, and he was given 10 IV of regular insulin, current Accu-Chek is 419. Potassium 5.4 and is given a small dose of Kayexalate. He continues to complain of anterior nonradiating chest pain. Has a minor cough with the above. PAST MEDICAL HISTORY 1. 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 Underwent a renal transplant at age 12, which later failed. Receives dialysis Tuesdays, and Saturday. Has a left upper arm fistula or shunt. 2. Type 1 diabetes mellitus since age 12. 3. Hypertension. 4. Chronic pancreatitis. 5. Gastroparesis. 6. ORIF right knee and bilateral hips. 7. ORIF bilateral ankles. 8. Exploratory lap and removal of transplanted kidney. 9. Patient underwent an EGD 10/29/2016 showing a small segment Couch esophagus, gastritis. Prominent gastric and cardiac varices. TIPS procedure was considered, but apparently was not felt to be necessary during that admission. There is also mention during that hospitalization of possible drug seeking behavior. ALLERGIES Contrast, codeine, amoxicillin. Unit #: [id number] #: [id number] Patient: NATALYA CROOK HOME MEDICATIONS Hydralazine 100 mg t.i.d.; sodium bicarb 650 mg t.i.d.; clonidine 0.3 mg t.i.d.; minoxidil 2.5 mg daily; Norvasc 10 mg daily; Neurontin 800 mg t.i.d.; Lipitor 80 mg daily; Paxil 10 mg daily; Reglan 5 mg t.i.d.; Zantac 150 mg b.i.d.; Carafate 1 g t.i.d.; Imdur 60 mg daily; Procrit; Levemir 13 units in the morning and 12 units in the evening; NovoLog 5 units t.i.d. with meal; Renvela 800 mg t.i.d. with meals; and [place] 5/325 q.6 hours as needed. FAMILY HISTORY CAD and hypertension. SOCIAL HISTORY The patient lives with family. He is a lifelong nonsmoker. Does not drink alcohol or use illicit drugs. REVIEW OF SYSTEMS Notable for shortness of breath, chest pain, remote PE I believe, failed renal transplant, end stage renal failure, chronic pancreatitis, gastroparesis, hypertension, type 1 diabetes mellitus, neuropathy, above mentioned surgeries. All other systems were reviewed and otherwise negative. PHYSICAL EXAMINATION GENERAL: Pleasant, mildly uncomfortable appearing 26-year-old male. VITAL SIGNS: Temperature 98.2, pulse 86, respiration 16, blood pressure 176/94, O2 saturation 74% on room air, which has improved with oxygen. HEENT: Eyes - PERRLA, extraocular muscles are intact. Pharynx is benign. NECK: Supple without adenopathy or thyromegaly. CHEST: Reveals crackles bilaterally. CARDIAC: Normal S1 and S2. ABDOMEN: Bowel sounds are present. Well healed scars are noted. No tenderness, hepatosplenomegaly, or masses. EXTREMITIES: With slight deformity of the right ankle, status post surgery. Pedal pulses are present. SKIN: Skin reveals some open areas. NEUROLOGIC: Patient is awake, alert and oriented. Cranial nerves are intact. Equal strength throughout. DIAGNOSTIC STUDIES LABORATORY STUDIES: Hematocrit is 24, which is stable, normal white count. Platelet count is 115, which is lower than a week ago. SMA 12 - glucose 670, BUN 36, creatinine 6.3, sodium 128, potassium 5.4, chloride 92. BNP 1200. Cardiac markers x2 negative. IMAGING STUDIES: Chest x-ray - congestive heart failure. CARDIOLOGY STUDIES: EKG - normal sinus rhythm rate 78, normal appearing. ASSESSMENT 1. Complains of chest pain, mainly pleuritic. 2. Type 1 diabetes mellitus, which is uncontrolled. Associated with gastroparesis and neuropathy. 3. End stage renal disease on hemodialysis. Patient just completed dialysis yesterday. Presents with fluid overload. He is status post failed kidney transplant. 4. Accelerated hypertension. 5. Gastroparesis. Unit #: [id number] #: [id number] Patient: NATALYA CROOK 1. Hemodialysis orders were called in by nephrology. 2. Continue nitropaste, check cardiac enzymes, will request a V/Q scan. Start low dose heparin drip. 3. Diabetic control. 4. Will obtain an echo. Dictated by Ludin Metz/sujatha TD: 11/09/2016 05:52 JOB #: [id number] HISTORY AND PHYSICAL Page 1 of 1 X Bianca Carter MD X HISTORY AND PHYSICAL
--- NOTE | ~2016-11-08 | EKG ---
PATIENT: NATALYA CROOK UNIT #: [id number] Ventricular Rate: 78 BPM Atrial Rate: 78 BPM P-R Interval: 162 ms QRS Duration: 94 ms Q-T Interval: 396 ms QTC Calculation(Bezet): 451 ms P [place]: 14 degrees Calculated R [place]: 10 degrees Calculated T [place]: 37 degrees Diagnosis Line: Normal sinus rhythm Diagnosis Line: Normal ECG Diagnosis Line: When compared with ECG of 08-NOV-2016 23:23, Diagnosis Line: (unconfirmed) Diagnosis Line: No significant change was found Diagnosis Line: Confirmed by CARTER STAFFORD MD ([id number]) on Diagnosis Line: 11/09/2016 11:18:17 PM INTERPRETING MD: ZANDRA
[2016-11-09 00:44] LABS: POC - CKMB 1.9 ng/mL (0.0-7.9); POC - TROPONIN <0.05 ng/mL (<=0.05)
[2016-11-09 01:06] LABS: ALBUMIN SERUM 3.5 g/dL (3.5-5.0); BILIRUBIN, DIRECT 0.2 mg/dL (0.0-0.2); BILIRUBIN,TOTAL 1.2 mg/dL (0.2-2.0); BUN/CREATININE RATIO 5.71; CALCIUM SERUM 9.1 mg/dL (8.4-10.2); CREATININE SERUM 6.3 mg/dL (0.6-1.4); GLOM FILT RATE Estimated 11.1 mL/min (>60); POTASSIUM 5.4 mmol/L (3.5-5.1); PROTEIN TOTAL SERUM 6.9 g/dL (6.0-8.3)
[2016-11-09 01:17] LABS: BASOPHIL# 0.1 X10e3 (0-0.3); BASOPHIL% 1.3 % (0-2.5); EOSINOPHIL# 0.3 X10e3 (0-0.7); EOSINOPHIL% 6.2 % (0.0-7.0); HEMOGLOBIN 7.6 gm/dL (13.0-16.0); LYMPHOCYTE# 0.7 X10e3 (1.0-3.5); MEAN CORPUSCULAR HEMOGLOBIN 24.8 PG (28-34); MEAN CORPUSCULAR HGB CONC 31.8 g/dL (30-36); MEAN PLATELET VOLUME 8.9 FL (6.5-11.5); MONOCYTE# 0.1 X10e3 (0-1.0); MONOCYTE% 2.9 % (3.0-12.0); NEUTROPHIL# 3.4 X10e3 (1.5-7.1); NEUTROPHIL% 74.6 % (40-75); PLATELET COUNT 115 X10e3 (140-420); RED BLOOD COUNT 3.07 X10e (3.90-5.60); RED CELL DISTRIBUTION WIDTH 17.7 % (11.0-15.5); WHITE BLOOD COUNT 4.5 X10e3 (4.0-10.5)
[2016-11-09 01:18] LABS: DIFF IND YES
[2016-11-09 01:23] LABS: INR 1.1; PARTIAL THROMBOPLASTIN TIME 29.6 SECONDS (23.5-31.3); PROTHROMBIN TIME (PATIENT) 11.4 SECONDS (9.6-11.5)
[2016-11-09 01:43] LABS: ANISOCYTOSIS MOD; HYPERSEGMENTED POLYS PRESENT; HYPOCHROMIA SL; MICROCYTOSIS SL; PLATELET ESTIMATE DECREASED (NORMAL)
[2016-11-09 03:01] LABS: POC - CKMB 2.3 ng/mL (0.0-7.9); POC - TROPONIN <0.05 ng/mL (<=0.05)
[2016-11-09 10:54] LABS: %MB 6.4 % (0.0-4.0); MB 4.1 ng/ml
[2016-11-09 15:58] LABS: CK TOTAL 58 IU/L (36-174)
[2016-11-09 18:44] LABS: BASOPHIL# 0.1 X10e3 (0-0.3); BASOPHIL% 1.5 % (0-2.5); EOSINOPHIL# 0.3 X10e3 (0-0.7); EOSINOPHIL% 9.1 % (0.0-7.0); HEMATOCRIT 22.9 % (38.0-50.0); HEMOGLOBIN 7.6 gm/dL (13.0-16.0); LYMPHOCYTE# 0.6 X10e3 (1.0-3.5); LYMPHOCYTE% 15.8 % (17.0-45.0); MEAN CELL VOLUME 75.1 FL (83-96); MEAN CORPUSCULAR HEMOGLOBIN 24.8 PG (28-34); MEAN PLATELET VOLUME 8.3 FL (6.5-11.5); MONOCYTE# 0.1 X10e3 (0-1.0); MONOCYTE% 4.3 % (3.0-12.0); NEUTROPHIL# 2.4 X10e3 (1.5-7.1); NEUTROPHIL% 69.3 % (40-75); PLATELET COUNT 143 X10e3 (140-420); RED BLOOD COUNT 3.05 X10e (3.90-5.60); RED CELL DISTRIBUTION WIDTH 18.1 % (11.0-15.5); WHITE BLOOD COUNT 3.5 X10e3 (4.0-10.5)
[2016-11-09 18:45] LABS: DIFF IND NO
[2016-11-09 19:07] LABS: BUN/CREATININE RATIO 5.76; CREATININE SERUM 2.6 mg/dL (0.6-1.4); GLOM FILT RATE Estimated 32.4 mL/min (>60); POTASSIUM 3.6 mmol/L (3.5-5.1)
[2016-11-09 19:30] LABS: %MB 7.5 % (0.0-4.0); MB 4.5 ng/ml
== END 2016-11-11 19:30 | disposition left against medical advice (07) | DRG 637 ==
LOC: CED 23:59 → CEDOF 11-09 04:00
PROVIDERS: Emergency Medicine; Internal Medicine
PROC: 5A1D00Z (ICD-10-PCS; principal; 2016-11-09)
DX: E10.65 Type 1 diabetes mellitus with hyperglycemia (principal); N18.6 End stage renal disease; K31.84 Gastroparesis; I12.0 Hypertensive chronic kidney disease with stage 5 chronic kidney disease or end stage renal disease; E10.22 Type 1 diabetes mellitus with diabetic chronic kidney disease; K86.1 Other chronic pancreatitis; E10.40 Type 1 diabetes mellitus with diabetic neuropathy, unspecified; E87.5 Hyperkalemia; E87.1 Hypo-osmolality and hyponatremia; Z79.4 Long term (current) use of insulin; E10.43 Type 1 diabetes mellitus with diabetic autonomic (poly)neuropathy; Z88.0 Allergy status to penicillin; Z88.5 Allergy status to narcotic agent; Z91.041 Radiographic dye allergy status
CPT/HCPCS: 36415; 71010; 78582; 80048; 80076; 82550; 82553; 82947; 83880; 84484; 85025; 85610; 85730; 93005; 96374; 96375; 99285; A9540; A9567; J1170; J1644; J1815; J2270

== ENCOUNTER 2016-11-11 05:55 | Emergency (ER) | payer OTHER ==
[2016-11-11 06:45] LABS: BASOPHIL# 0.1 X10e3 (0-0.3); BASOPHIL% 1.2 % (0-2.5); EOSINOPHIL# 0.3 X10e3 (0-0.7); EOSINOPHIL% 7.3 % (0.0-7.0); HEMATOCRIT 24.7 % (38.0-50.0); HEMOGLOBIN 8.1 gm/dL (13.0-16.0); LYMPHOCYTE# 0.9 X10e3 (1.0-3.5); LYMPHOCYTE% 20.7 % (17.0-45.0); MEAN CELL VOLUME 76.1 FL (83-96); MEAN CORPUSCULAR HEMOGLOBIN 25.1 PG (28-34); MEAN PLATELET VOLUME 9.1 FL (6.5-11.5); MONOCYTE# 0.2 X10e3 (0-1.0); MONOCYTE% 4.7 % (3.0-12.0); NEUTROPHIL# 2.9 X10e3 (1.5-7.1); NEUTROPHIL% 66.1 % (40-75); PLATELET COUNT 150 X10e3 (140-420); RED BLOOD COUNT 3.24 X10e (3.90-5.60); RED CELL DISTRIBUTION WIDTH 17.7 % (11.0-15.5); WHITE BLOOD COUNT 4.3 X10e3 (4.0-10.5)
[2016-11-11 06:48] LABS: DIFF IND NO
[2016-11-11 07:16] LABS: BILIRUBIN, DIRECT 0.1 mg/dL (0.0-0.2); BILIRUBIN,INDIRECT 0.5 mg/dL (0.0-0.9); BILIRUBIN,TOTAL 0.6 mg/dL (0.2-2.0); BUN/CREATININE RATIO 5.68; CALCIUM SERUM 9.9 mg/dL (8.4-10.2); CREATININE SERUM 5.1 mg/dL (0.6-1.4); GLOM FILT RATE Estimated 14.3 mL/min (>60); POTASSIUM 3.6 mmol/L (3.5-5.1); PROTEIN TOTAL SERUM 7.8 g/dL (6.0-8.3)
== END 2016-11-11 07:51 | disposition home or self-care (01) ==
LOC: CED 05:55
PROVIDERS: Emergency Medicine
DX: R10.12 Left upper quadrant pain (principal); E11.9 Type 2 diabetes mellitus without complications; I12.0 Hypertensive chronic kidney disease with stage 5 chronic kidney disease or end stage renal disease; N18.6 End stage renal disease; Z79.899 Other long term (current) drug therapy; Z79.4 Long term (current) use of insulin
CPT/HCPCS: 36415; 80048; 80076; 82150; 83690; 85025; 96374; 96375; 99284; J1200; J2270; J2405

== ENCOUNTER 2016-11-23 08:32 | Observation (INO) | payer OTHER ==
--- NOTE | ~2016-11-23 | EKG ---
PATIENT: NATALYA CROOK UNIT #: [id number] Ventricular Rate: 69 BPM Atrial Rate: 69 BPM P-R Interval: 170 ms QRS Duration: 104 ms Q-T Interval: 404 ms QTC Calculation(Bezet): 432 ms P [place]: 2 degrees Calculated R [place]: 24 degrees Calculated T [place]: 34 degrees Diagnosis Line: Normal sinus rhythm Diagnosis Line: Normal ECG Diagnosis Line: When compared with ECG of 11-NOV-2016 05:03, Diagnosis Line: Incomplete right bundle branch block is no longer Diagnosis Line: Present Diagnosis Line: T wave amplitude has increased in Anterior leads Diagnosis Line: QT has shortened Diagnosis Line: Confirmed by REBA TSANG MD ([id number]) on 11/23/2016 Diagnosis Line: 8:11:01 PM INTERPRETING MD: TRINH TARANGO
--- NOTE | ~2016-11-23 | HP ---
Unit #: [id number] #: [id number] Patient: NATALYA CROOK [id number] [facility]. [place], [place] [address] [id number] MR#: [id number] NAME: NATALYA CROOK ROOM: 137[address] Age: 26 Sex: M Admission Date: 11/23/2016 : 1990 Attending Physician: Bella Vasquez M.D. Primary Care Physician: No Primary Care Physician HISTORY AND PHYSICAL CHIEF COMPLAINT Abdominal pain and leg pain. HISTORY OF PRESENT ILLNESS The patient is a 26-year-old with a past medical history of diabetes, hypertension, end stage renal disease, chronic anemia, gastroparesis, chronic pancreatitis, Couch esophagus who presented to the emergency department for evaluation of the above. The patient states that he was in his usual state of health until the morning of admission when he developed abdominal pain and leg cramps. He states that the leg cramps and abdominal pain woke him from sleep around 1:00 a.m. He states that the pain is in his upper abdomen and he describes it as "sharp." It radiates to his back. There are no exacerbating or alleviating factors. He has had nausea but no vomiting. He denies any diarrhea. He no longer makes urine. He also has leg cramps similar to when his potassium has been high in the past. His last dialysis was on 11/20/2016. He is scheduled to receive dialysis today. He missed yesterday due to another appointment. He states that he has been taking his medications as prescribed, including his insulin. The last dose was yesterday. Upon arrival in the emergency department the patient's pulse and blood pressure were 73 and 176/106 respectively. Laboratories notable for glucose of 522, BUN and creatinine of 54 and 8.7, potassium 6. Hemoglobin and hematocrit are 7.5 and 22.3 respectively. He was given an amp of calcium gluconate, as well as an amp of sodium bicarb in the emergency department. Additional he received 500 mL of normal saline and 20 units of NovoLog subcu. He is being admitted to [facility] for evaluation and further treatment. Of note, he also received a GI cocktail, [place] and Zofran. PAST MEDICAL HISTORY 1. Admission to [facility] 11/09/2016 for abdominal pain. 2. 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 He apparently underwent renal transplant at the age of 12, which later failed. He receives dialysis on Tuesdays, , and Saturdays. He has a left upper extremity shunt. He is followed by Dr. Johnson. 3. Type 1 diabetes since age 12. 4. Hypertension. 5. Chronic pancreatitis. 6. Gastroparesis. Unit #: [id number] #: [id number] Patient: NATALYA CROOK 7. Chronic anemia. PAST SURGICAL HISTORY 1. Left upper extremity fistula. 2. Right knee surgery. 3. Hip surgery. 4. Ankle surgery. 5. Exploratory laparotomy and removal of transplant kidney. 6. EGD on 10/29/2016 that showed a small segment of Couch esophagus, as well as gastritis and prominent gastric and cardiac varices. Per record review TIPS was considered but was not felt to be necessary at that time. SOCIAL HISTORY The patient lives with his . There is no tobacco or alcohol use. He denies illicit drug use. FAMILY HISTORY Notable for both parent's having diabetes. ALLERGIES Iodinated contrast media, codeine, amoxicillin, morphine. HOME MEDICATIONS Hydralazine 100 mg t.i.d.; sodium bicarb 650 mg t.i.d.; clonidine 0.3 mg t.i.d.; minoxidil 2.5 mg daily; Norvasc 10 mg daily; Neurontin 800 mg t.i.d.; atorvastatin 80 mg daily; Paxil 10 mg daily; Reglan 5 mg t.i.d.; Zantac 150 mg twice daily; Carafate 1 g t.i.d.; isosorbide mononitrate 60 mg daily; Procrit 0.8 subcu Tuesdays, , and Saturday; Levemir 13 units subcu in the morning and 12 units subcu at bedtime; NovoLog 5 units t.i.d. with meal; Renvela 800 mg t.i.d. with meals; and hydrocodone/acetaminophen 5/325 p.o. q.6 hours p.r.n. REVIEW OF SYSTEMS A complete review of systems is negative except as indicated in the HPI. PHYSICAL EXAMINATION VITAL SIGNS: Temperature 98, pulse 73, respirations 16, blood pressure 176/106, most recently 161/96, oxygen saturation is 93% on room air. GENERAL: The patient is a male who is awake and alert, sitting up in bed. HEENT: Head is atraumatic. Mucous membranes are dry. NECK: Supple. Trachea is midline. CARDIOVASCULAR: Regular rate and rhythm. LUNGS: Clear to auscultation bilaterally with no increased work of breathing. ABDOMEN: Soft with bowel sounds present in all four quadrants. He does have some well healed scars. He is mildly tender to palpation in the epigastric region. EXTREMITIES: Nontender with no pedal edema. NEUROLOGIC: The patient is awake and alert. He follows commands. PSYCH: Mood and affect are normal. The patient is cooperative. SKIN: Skin of examined areas is warm and dry. DIAGNOSTIC STUDIES CARDIOLOGY STUDIES: EKG shows normal sinus rhythm at a rate of 69 BPM. LABORATORY STUDIES: Complete blood count notable for hemoglobin and Unit #: [id number] #: [id number] Patient: NATALYA CROOK hematocrit of 7.5 and 22.3 respectively. Comprehensive metabolic panel notable for sodium of 126, it corrects to 133 when glucose of 522 is accounted for; potassium of 6, CO2 23, BUN and creatinine 54 and 8.7 respectively, lipase and amylase are less than 10 and 7 respectively. ASSESSMENT The patient is a 26-year-old male with: 1. Abdominal pain. 2. Uncontrolled diabetes with an initial glucose of 522. The patient received 500 mL of normal saline, as well as 20 units of NovoLog subcu in the emergency department. 3. Hyperkalemia with potassium of 6. The patient received an amp of calcium gluconate, as well as an amp of sodium bicarb in the emergency department. 4. End stage renal disease. Dialysis orders have been written by Dr. Bui. 5. Hypertension. 6. Acute on chronic anemia. The patient's hemoglobin was 8.1 on 11/11/2016 at 7.5 today. 7. Gastroparesis. 8. Chronic pancreatitis. 9. History of Couch esophagus. PLAN 1. Admit for observation to an intermediate level. 2. NPO. Will advance diet to clear liquids as tolerated. 3. P.r.n. Dilaudid. 4. P.r.n. Zofran. 5. Medium dose sliding scale insulin. 6. Restart home Levemir. 7. Hemoglobin and hematocrit later this evening to follow up with acute on chronic anemia. 8. Protonix 40 mg IV daily. 9. Consult Dr. Bui regarding stat dialysis. He has already seen the patient. 10. SCDs for DVT prophylaxis. 11. Repeat labs in the morning. 12. Additional workup and consultants based on above. Dictated by Ludin Shook/sujatha TD: 11/23/2016 13:01 JOB #: [id number] Unit #: [id number] #: [id number] Patient: NATALYA CROOK HISTORY AND PHYSICAL Page 1 of 1 X Bella Vasquez MD X HISTORY AND PHYSICAL
[2016-11-23 09:31] LABS: BASOPHIL# 0.1 X10e3 (0-0.3); BASOPHIL% 1.2 % (0-2.5); EOSINOPHIL# 0.3 X10e3 (0-0.7); EOSINOPHIL% 5.8 % (0.0-7.0); HEMATOCRIT 22.3 % (38.0-50.0); HEMOGLOBIN 7.5 gm/dL (13.0-16.0); LYMPHOCYTE# 0.7 X10e3 (1.0-3.5); LYMPHOCYTE% 14.5 % (17.0-45.0); MEAN CELL VOLUME 76.9 FL (83-96); MEAN CORPUSCULAR HGB CONC 33.8 g/dL (30-36); MEAN PLATELET VOLUME 9.1 FL (6.5-11.5); MONOCYTE# 0.2 X10e3 (0-1.0); MONOCYTE% 3.9 % (3.0-12.0); NEUTROPHIL# 3.5 X10e3 (1.5-7.1); NEUTROPHIL% 74.6 % (40-75); PLATELET COUNT 134 X10e3 (140-420); RED BLOOD COUNT 2.91 X10e (3.90-5.60); WHITE BLOOD COUNT 4.8 X10e3 (4.0-10.5)
[2016-11-23 09:34] LABS: DIFF IND YES
[2016-11-23 10:05] LABS: ANISOCYTOSIS SL; PLATELET ESTIMATE NORMAL (NORMAL)
[2016-11-23 10:06] LABS: MICROCYTOSIS SL
[2016-11-23 10:29] LABS: ALBUMIN SERUM 3.4 g/dL (3.5-5.0); ALKALINE PHOSPHATASE 77 U/L (32-92); ALT (SGPT) 9 U/L (10-40); AMYLASE 7 U/L (0-46); AST (SGOT) 14 U/L (10-42); BILIRUBIN, DIRECT 0.3 mg/dL (0.0-0.2); BILIRUBIN,TOTAL 1.3 mg/dL (0.2-2.0); BLOOD UREA NITROGEN 54 mg/dL (9-23); CALCIUM SERUM 9.5 mg/dL (8.4-10.2); CARBON DIOXIDE 23 mmol/L (22-31); CHLORIDE 89 mmol/L (100-111); CREATININE SERUM 8.7 mg/dL (0.6-1.4); GLOM FILT RATE Estimated 7.5 mL/min (>60); PROTEIN TOTAL SERUM 7.2 g/dL (6.0-8.3); SODIUM 126 mmol/L (135-145)
[2016-11-23 10:31] LABS: GLUCOSE FASTING 522 mg/dL (70-110)
[2016-11-23 10:32] LABS: LIPASE <10 U/L (22-51)
[2016-11-23 18:58] LABS: HEMATOCRIT 24.8 % (38.0-50.0); HEMOGLOBIN 8.2 gm/dL (13.0-16.0)
== END 2016-11-23 19:45 | disposition left against medical advice (07) ==
LOC: CED 08:32 → CEDOF 11:50 → CED 11:54 → CEDOF 11:54
PROVIDERS: Emergency Medicine; Family Medicine
DX: E10.22 Type 1 diabetes mellitus with diabetic chronic kidney disease (principal); E10.65 Type 1 diabetes mellitus with hyperglycemia; I12.0 Hypertensive chronic kidney disease with stage 5 chronic kidney disease or end stage renal disease; N18.6 End stage renal disease; Z99.2 Dependence on renal dialysis; R10.13 Epigastric pain; R25.2 Cramp and spasm; E87.5 Hyperkalemia; Z79.4 Long term (current) use of insulin; K86.1 Other chronic pancreatitis; K31.84 Gastroparesis; D64.9 Anemia, unspecified; Z88.1 Allergy status to other antibiotic agents; Z88.8 Allergy status to other drugs, medicaments and biological substances; Z91.041 Radiographic dye allergy status
CPT/HCPCS: 80048; 80076; 82150; 82947; 83690; 85014; 85018; 85025; 93005; 99291; G0378; J0610; J1170; J1815

== ENCOUNTER 2016-12-05 14:32 | Observation (INO) | payer OTHER ==
--- NOTE | ~2016-12-05 | HP ---
Unit #: [id number] #: [id number] Patient: NATALYA CROOK [id number] [place], [place] [address] [id number] MR#: [id number] NAME: NATALYA CROOK ROOM: Age: 26 Sex: M Admission Date: 12/05/2016 : 1990 Attending Physician: Aly Nguyen M.D. HISTORY AND PHYSICAL CHIEF COMPLAINT Abdominal pain, shortness of breath. HISTORY OF PRESENT ILLNESS The patient is a 26-year-old male with a past medical history of diabetes, hypertension, end-stage renal disease, chronic anemia, gastroparesis, chronic pancreatitis, and Couch esophagus, who presented to the emergency department for evaluation of the above. The patient states that he was in his usual state of health until the morning of admission when he developed abdominal pain. He states that the pain is in his upper abdomen. He describes it as "sharp." It has been constant in nature. There are no exacerbating or alleviating factors. He states that he has had one bout of nonbloody emesis but no diarrhea. He no longer makes urine. He denies any fever and no cough or cold symptoms. He is on dialysis Saturday//Saturday with last dialysis being on the day prior to admission. He is on Levemir 20 units subcutaneous twice daily which he has been taking as prescribed. He states his last dose was on the evening prior to admission. He is also on NovoLog 5 units t.i.d. and sliding scale. Upon arrival in the emergency department, the patient's pulse and blood pressure were 75 and 210/110, respectively. Chest x-ray showed fluid overload with possible small right pleural effusion. Laboratory is notable for glucose of 592 and CO2 is 97. Anion gap is 11. He was given 10 units of regular insulin, as well as 0.5 mg of Dilaudid. He has also been started on a nitroglycerin drip. Additionally, he was given 0.625 mg of enalapril. He is being admitted to [facility] for evaluation and further treatment. PAST MEDICAL HISTORY 1. Admission to [facility] November 23, 2016, for abdominal pain and uncontrolled diabetes. 2. End-stage renal disease, on dialysis due to congenital abnormalities of the kidneys. He apparently underwent renal transplant at the age of 12 which he later failed. He receives dialysis Tuesdays//Saturdays. He has a left upper extremity shunt. He is followed by Dr. Arana. 3. Type 2 diabetes since age 12. 4. Hypertension. 5. Chronic pancreatitis. 6. Gastroparesis. 7. Chronic anemia. Unit #: [id number] #: [id number] Patient: NATALYA CROOK PAST SURGICAL HISTORY 1. Left upper extremity fistula. 2. Right knee surgery. 3. Hip surgery. 4. Ankle surgery. 5. Exploratory laparotomy and removal of transplant kidney. 6. EGD on October 29, 2016, that showed a small segment of Couch esophagus, as well as gastritis and prominent gastric and cardiac varices. Per record review, TIPS was considered but not felt to be necessary at that time. SOCIAL HISTORY The patient lives with his and kids. There is no tobacco or alcohol use. He denies illicit drug use. FAMILY HISTORY Notable for both parents having diabetes. ALLERGIES Iodinated contrast media, codeine, amoxicillin, and morphine. HOME MEDICATIONS 1. Sodium bicarbonate. 2. Clonidine. 3. Minoxidil. 4. Norvasc. 5. Neurontin. 6. Paxil. 7. Reglan. 8. Zantac. 9. Renvela. 10. CellCept. 11. PhosLo. 12. Lipitor. 13. Iron. 14. Imdur. 15. Coreg. 16. Senna. 17. Levemir. 18. NovoLog FlexPen. 19. Prednisone. Home medications will need to be reviewed and verified. REVIEW OF SYSTEMS A complete review of systems is negative except as indicated in the History of Present Illness. The patient states that he is still taking CellCept and prednisone, although his kidney transplant has failed. It is unclear if he is actually taking these medications and why if the transplant failed. PHYSICAL EXAMINATION VITAL SIGNS: Temperature is 98.7, pulse 75, respirations 18, and blood pressure 212/110, most recently 183/109. GENERAL: Patient is a male who is awake, alert, and in no acute distress. HEENT: Head is atraumatic. Mucous membranes are moist. NECK: Supple. Trachea is midline. Unit #: [id number] #: [id number] Patient: NATALYA CROOK CARDIOVASCULAR: Regular rate and rhythm. LUNGS: Clear to auscultation bilaterally with no increased work of breathing. ABDOMEN: Soft. He is tender to palpation in the epigastric area. Bowel sounds are present in all four quadrants. EXTREMITIES: Nontender with no pedal edema. The patient does have a fistula in the left upper extremity with thrill and bruit. NEUROLOGIC: Patient is awake and alert. He follows commands. PSYCHIATRIC: Mood and affect are normal. Patient is cooperative. SKIN: Skin of examined areas is warm and dry. DIAGNOSTIC STUDIES LABORATORY: Troponin is less than 0.05. Complete blood count notable for hemoglobin and hematocrit of 8 and 23.7, respectively, and platelets are 106,000. BNP is 2534. Basic metabolic panel notable for sodium of 129, chloride 91, glucose 592, CO2 of 27, anion gap 11, and BUN and creatinine 38 and 7.9, respectively. IMAGING: Chest x-ray shows fluid overload with small right pleural effusion. CARDIOLOGY: EKG shows normal sinus rhythm with a rate of 73 beats per minute. ASSESSMENT The patient is a 26-year-old male with: 1. Abdominal pain. The patient does have a history of chronic pancreatitis. 2. Uncontrolled diabetes with initial glucose of 592. He received 10 units of regular insulin in the emergency department. The patient's hemoglobin A1c was 7.9 on October 25, 2016. 3. Fluid overload. The patient is currently on nitroglycerin drip. 4. End-stage renal disease, on dialysis, with last dialysis being yesterday. 5. Uncontrolled hypertension. The patient receive enalapril in the emergency department. He is currently on nitroglycerin drip. 6. Chronic anemia. The patient's hemoglobin was 8.2 on November 23, 2016. It is 8 today. 7. Thrombocytopenia. The patient's platelet count has been as low as 115 on November 08, 2016. It is 106 today. 8. Gastroparesis. 9. Chronic pancreatitis. 10. History of Couch esophagus. PLAN 1. Admit for observation to intermediate level. 2. N.p.o. except ice chips. 3. P.r.n. Dilaudid. 4. P.r.n. Zofran. 5. Restart home Levemir. 6. Medium-dose sliding scale insulin. 7. Accu-Cheks q.4 hours. 8. Hemoglobin and hematocrit later this evening to follow up anemia. 9. Consult Dr. Bui for stat dialysis. 10. Continue nitroglycerin drip. 11. Monitor blood pressure closely. 12. Check LFTs, amylase, and lipase. 13. Serial cardiac enzymes. Unit #: [id number] #: [id number] Patient: NATALYA CROOK 14. SCDs for DVT prophylaxis. 15. Repeat labs in the morning. 16. Additional workup and consultants based on above. 1. Dictated by Bella Vasquez M.D. AW/am TD: 12/05/2016 18:20 JOB #: [id number] HISTORY AND PHYSICAL Page 1 of 1 X Bella Vasquez MD HISTORY AND PHYSICAL
--- NOTE | ~2016-12-05 | EKG ---
PATIENT: NATALYA CROOK UNIT #: [id number] Ventricular Rate: 73 BPM Atrial Rate: 73 BPM P-R Interval: 154 ms QRS Duration: 96 ms Q-T Interval: 406 ms QTC Calculation(Bezet): 447 ms P [place]: 10 degrees Calculated R [place]: 12 degrees Calculated T [place]: 20 degrees Diagnosis Line: Normal sinus rhythm Diagnosis Line: Normal ECG Diagnosis Line: When compared with ECG of 23-NOV-2016 10:53, Diagnosis Line: T wave amplitude has decreased in Anterior leads Diagnosis Line: Confirmed by REBA TSANG MD ([id number]) on 12/06/2016 Diagnosis Line: 6:01:59 PM INTERPRETING MD: TRINH TARANGO
--- NOTE | ~2016-12-05 | DS ---
Unit #: [id number] #: [id number] Patient: NATALYA CROOK [id number] [address] [id number] I MR#: [id number] NAME: NATALYA CROOK ROOM: 564 Age: 26 Sex: M Admission Date: 12/05/2016 : 1990 Discharge Date: Attending Physician: Lu Wilder M.D. DISCHARGE SUMMARY DISCHARGE DIAGNOSES 1. Hypertensive crisis. 2. Diabetes mellitus type 2, uncontrolled. 3. Hypoglycemia. 4. Abdominal pain secondary to chronic pancreatitis. 5. Fluid overload. 6. End-stage renal disease, on hemodialysis. 7. Chronic anemia secondary to chronic kidney disease. 8. Thrombocytopenia. 9. Gastroparesis. 10. History of Couch esophagus. CONSULTATION Dr. Jimenez. PROCEDURES None. DIAGNOSTIC STUDIES LABORATORY: Glucose 65, sodium 134, potassium 3.9, and creatinine 4.4. Liver enzymes normal. Hemoglobin 8.5. Troponin is negative. Amylase and lipase are normal. BNP 2534. ALLERGIES Iodinated contrast media oral, codeine, amoxicillin. DISCHARGE MEDICATIONS 1. Sodium bicarbonate 650 p.o. 3 times daily. 2. Neurontin 800 3 times daily. 3. Paxil 10 daily. 4. Atorvastatin 80 daily. 5. Coreg 25 p.o. b.i.d. 6. Norvasc 10 daily. 7. Senna 8.6 mg p.o. daily. 8. Clonidine 0.3 at 3 times daily. 9. Hydralazine 100 at 3 times daily. 10. Minoxidil 2.5 daily. 11. Levemir 15 units subcutaneous b.i.d. 12. NovoLog 5 units subcutaneous 3 times daily with meals. 13. Ferrous sulfate 325 p.o. 3 times daily. 14. Reglan 5 mg 3 times daily. 15. Zantac 150 p.o. b.i.d. 16. CellCept 250 p.o. b.i.d. 17. Renvela 800 at 3 times daily with meals. Unit #: [id number] #: [id number] Patient: NATALYA CROOK 18. PhosLo 1334 mg p.o. 3 times daily. 19. Imdur ER 60 daily. 20. Lortab 5 mg q.6 p.r.n. pain. HOSPITAL COURSE Hypertensive crisis likely secondary to end-stage renal disease. Patient received nitroglycerin drip. Patient received IV hydralazine, and p.o. hydralazine has been added. Currently, blood pressure is 140/75. Abdominal pain secondary to chronic pancreatitis. Patient received Dilaudid. I am going to give a prescription for Lortab a few pills. Diabetes mellitus type 2, uncontrolled, with hypoglycemia. I adjusted his insulin. Follow with family physician. End-stage renal disease. Patient received hemodialysis. Continue with hemodialysis as an outpatient. DIET Continue with low-fat diet and CCD diet at home. DISPOSITION Discharge home later today if blood pressure is greater than 80. FOLLOWUP 1. With family physician in one week's time. 2. With his kidney doctor for dialysis. 1. Dictated by... Ludin Hernandez/shelby TD: 12/06/2016 16:43 JOB #: [id number] DISCHARGE SUMMARY Page 1 of 1 X Lu Wilder MD X DISCHARGE SUMMARY
--- NOTE | ~2016-12-05 | CR72 ---
[facility] A Service of [facility] & [facility] RADIOLOGY TEXT RESULTS PATIENT: NATALYA CROOK LOCATION: [place] [address]-14 : [birth year] UNIT #: [id number] AGE: [address]: Bella Vasquez MD SEX: M ORDER DR: [id number] [facility] [address]. [place], [place] [address] [id number] MR#: [id number] Acc #: [id number] NAME: NATALYA CROOK : 1990 SEX: M STUDY DATE/TIME: 12/05/2016 14:55 UNIT: [facility] ROOM: STUDY DESCRIPTION: CR Chest Single View Portable Attending Physician: Aly Nguyen M.D. Ordering Physician: Aly Nguyen M.D. Primary Care Physician: No Primary Care Physician MEDICAL IMAGING REPORT This report is preliminary unless electronic signature is present EXAM Portable chest 12/05 INDICATIONS Shortness of air that started this morning. History of hypertension, CHF. FINDINGS AP portable chest compared with 11/09/2016. Cardiomegaly stable. Again seen is pulmonary edema with small bilateral effusions, right greater than left. There is increased atelectasis at the right base. No pneumothorax. IMPRESSION CHF with slight increase in size of a small right pleural effusion with increasing atelectasis at the right base. Left effusion is stable. Dictated by... Aly Barnard Jr., M.D. THIS IS AN ELECTRONICALLY VERIFIED REPORT Aly Barnard Jr., M.D. at 12/05/2016 6:35 PM Manjula TD: 12/05/2016 17:56 JOB #: [id number] MEDICAL IMAGING REPORT Page 1 of 1 COPY
[2016-12-05 15:37] LABS: POC - CKMB 1.6 ng/mL (0.0-7.9); POC - TROPONIN <0.05 ng/mL (<=0.05)
[2016-12-05 15:40] LABS: EOSINOPHIL# 0.2 X10e3 (0-0.7); EOSINOPHIL% 5.4 % (0.0-7.0); HEMATOCRIT 23.7 % (38.0-50.0); LYMPHOCYTE# 0.6 X10e3 (1.0-3.5); LYMPHOCYTE% 12.3 % (17.0-45.0); MEAN CELL VOLUME 80.3 FL (83-96); MEAN CORPUSCULAR HEMOGLOBIN 27.1 PG (28-34); MEAN CORPUSCULAR HGB CONC 33.8 g/dL (30-36); MEAN PLATELET VOLUME 8.8 FL (6.5-11.5); MONOCYTE# 0.2 X10e3 (0-1.0); MONOCYTE% 4.1 % (3.0-12.0); NEUTROPHIL# 3.5 X10e3 (1.5-7.1); NEUTROPHIL% 77.2 % (40-75); PLATELET COUNT 106 X10e3 (140-420); RED BLOOD COUNT 2.95 X10e (3.90-5.60); RED CELL DISTRIBUTION WIDTH 17.1 % (11.0-15.5); WHITE BLOOD COUNT 4.5 X10e3 (4.0-10.5)
[2016-12-05 15:41] LABS: DIFF IND NO
[2016-12-05 16:06] LABS: BUN/CREATININE RATIO 4.81; CREATININE SERUM 7.9 mg/dL (0.6-1.4); GLOM FILT RATE Estimated 8.4 mL/min (>60); POTASSIUM 4.6 mmol/L (3.5-5.1)
[2016-12-05] MEDS ORDERED: CELLCEPT250 MG PO (16:08)
[2016-12-05] MEDS ORDERED: PHOSLO667 MG PO (16:08)
[2016-12-05] MEDS ORDERED: LIPITOR80 MG PO (16:09)
[2016-12-05] MEDS ORDERED: FERROUS SULFAT325 MG PO (16:09)
[2016-12-05] MEDS ORDERED: IMDUR-ER60 M1 PO (16:09)
[2016-12-05] MEDS ORDERED: CARVEDILOL25 MG PO (16:10)
[2016-12-05] MEDS ORDERED: LEVEMIR FL100 UNIT/1 SUBQ (16:10)
[2016-12-05] MEDS ORDERED: SENNA8.6 M1 PO (16:10)
[2016-12-05] MEDS ORDERED: NOVOLOG FL100 UNIT/1 SUBQ (16:12)
[2016-12-05] MEDS ORDERED: PREDNISONE5 M1 PO (16:12)
[2016-12-05 18:14] LABS: POC - CKMB 1.2 ng/mL (0.0-7.9); POC - TROPONIN <0.05 ng/mL (<=0.05)
[2016-12-05 18:20] LABS: AMYLASE 8 U/L (0-46); LIPASE 17 U/L (22-51)
[2016-12-05 18:35] LABS: ALBUMIN SERUM 3.5 g/dL (3.5-5.0); BILIRUBIN, DIRECT 0.2 mg/dL (0.0-0.2); BILIRUBIN,INDIRECT 1.2 mg/dL (0.0-0.9); BILIRUBIN,TOTAL 1.4 mg/dL (0.2-2.0); PROTEIN TOTAL SERUM 6.8 g/dL (6.0-8.3)
[2016-12-05 19:01] LABS: HEMATOCRIT 24.1 % (38.0-50.0); HEMOGLOBIN 8.2 gm/dL (13.0-16.0)
[2016-12-05 22:13] LABS: %MB 4.8 % (0.0-4.0); MB 3.2 ng/ml
[2016-12-06 07:25] LABS: %MB 2.6 % (0.0-4.0)
[2016-12-06 09:34] LABS: BASOPHIL% 0.9 % (0-2.5); EOSINOPHIL# 0.3 X10e3 (0-0.7); EOSINOPHIL% 7.2 % (0.0-7.0); HEMOGLOBIN 8.5 gm/dL (13.0-16.0); LYMPHOCYTE# 0.9 X10e3 (1.0-3.5); LYMPHOCYTE% 19.7 % (17.0-45.0); MEAN CELL VOLUME 78.2 FL (83-96); MEAN CORPUSCULAR HEMOGLOBIN 26.5 PG (28-34); MEAN CORPUSCULAR HGB CONC 33.9 g/dL (30-36); MEAN PLATELET VOLUME 8.4 FL (6.5-11.5); MONOCYTE# 0.2 X10e3 (0-1.0); MONOCYTE% 3.8 % (3.0-12.0); NEUTROPHIL% 68.4 % (40-75); PLATELET COUNT 127 X10e3 (140-420); RED BLOOD COUNT 3.19 X10e (3.90-5.60); RED CELL DISTRIBUTION WIDTH 17.2 % (11.0-15.5); WHITE BLOOD COUNT 4.4 X10e3 (4.0-10.5)
[2016-12-06 09:37] LABS: DIFF IND NO
[2016-12-06 10:02] LABS: ALBUMIN SERUM 3.6 g/dL (3.5-5.0); BILIRUBIN,TOTAL 1.6 mg/dL (0.2-2.0); BUN/CREATININE RATIO 3.86; CALCIUM SERUM 9.4 mg/dL (8.4-10.2); GLOM FILT RATE Estimated 17.1 mL/min (>60); MAGNESIUM 1.9 mg/dL (1.6-3.0); PHOSPHOROUS 4.2 mg/dL (2.5-4.6); POTASSIUM 3.9 mmol/L (3.5-5.1)
[2016-12-06 10:03] LABS: CREATININE SERUM 4.4 mg/dL (0.6-1.4)
[2016-12-06] MEDS ORDERED: LORTAB 5-325 M1 EACH PO (15:44)
[2016-12-06] MEDS ORDERED: HYDRALAZINE HC100 MG PO (15:45)
== END 2016-12-06 18:50 | disposition home or self-care (01) ==
LOC: CED 14:32 → CEDOF 17:30 → C5C 17:44 → CED 17:44 → C5C 12-06 02:26 → CEDOF 12-06 02:26 → C5C 12-06 07:54
PROVIDERS: Emergency Medicine; Family Medicine
DX: I16.9 Hypertensive crisis, unspecified (principal); I12.0 Hypertensive chronic kidney disease with stage 5 chronic kidney disease or end stage renal disease; E11.22 Type 2 diabetes mellitus with diabetic chronic kidney disease; N18.6 End stage renal disease; D63.1 Anemia in chronic kidney disease; E11.649 Type 2 diabetes mellitus with hypoglycemia without coma; E11.43 Type 2 diabetes mellitus with diabetic autonomic (poly)neuropathy; K31.84 Gastroparesis; K86.1 Other chronic pancreatitis; Z99.2 Dependence on renal dialysis; Z79.4 Long term (current) use of insulin; E87.70 Fluid overload, unspecified; D69.6 Thrombocytopenia, unspecified
CPT/HCPCS: 71010; 80048; 80053; 80076; 82150; 82550; 82553; 82947; 83690; 83735; 83880; 84100; 84484; 85014; 85018; 85025; 93005; 96366; 96372; 96374; 96375; 96376; 99291; G0378; J0360; J1170; J1815; J2405; Q4081

== ENCOUNTER 2016-12-23 21:23 | Inpatient (IN) | payer OTHER ==
--- NOTE | ~2016-12-23 | CO ---
Unit #: [id number] #: [id number] Patient: NATALYA CROOK [id number] [address] [place], [place] [address] [id number] I MR#: [id number] NAME: NATALYA CROOK ROOM: CIC2 Age: 26 Sex: M Admission Date: 12/24/2016 : 1990 Attending Physician: Lu Wilder M.D. Primary Care Physician: Primary Care Physician No Consultation Date: 12/24/2016 CONSULTATION REPORT REASON FOR CONSULTATION Right upper extremity edema due to her secondary to a peripheral IV stick which was suspected to have nicked the brachial artery. HISTORY OF PRESENT ILLNESS Mr. Kamara is a 26-year-old gentleman, who has an end-stage renal disease, and who is currently on hemodialysis. He had a renal transplant in February of 2013, which failed. He is currently on dialysis through a left upper extremity fistula. He is not having any complications with this fistula at this time. He was brought to the emergency room on 12/23/2016, with the chief complaint of having shortness of breath. His blood pressure was found to be abnormally high at 180s/110s, he was found to be hypoxic at that time. The patient was placed on BiPAP, and his chest x-ray showed a significant amount of bilateral pulmonary edema. It was decided at that time, he would need peripheral venous access which was attempted in his right arm. The stick to his right arm was suspected to had been an arterial stick which led to significant edema of his right upper extremity and hand. A central line was placed in the femoral site on his right groin. His arm continued to swell over the past 12 hours with Renard wrap in place to control the bleeding above the level of the elbow. His pain level is approximately 6/10, he is complaining of tenderness, when his arm is touched. There is significant swelling from the mid portion of the arm all the way down to the tips of the fingers. There is no pitting of the edema; however, there is tense skin due to the significant amount of fluid in his arm. PAST MEDICAL HISTORY Significant for; 1. End-stage renal disease. 2. Status post renal transplant in 2012. 3. Depression. 4. Anxiety. 5. Couch's esophagitis. 6. Malnutrition. 7. Gastroparesis. 8. Thrombocytopenia. 9. Chronic pancreatitis. 10. Hypertension. 11. Diabetes. ALLERGIES He is allergic to contrast dye, codeine, amoxicillin, and morphine. Unit #: [id number] #: [id number] Patient: NATALYA CROOK HOME MEDICATIONS Bicarbonate, clonidine, minoxidil, Norvasc, Neurontin, Paxil, Reglan, Zantac, CellCept, PhosLo, Lipitor, ferrous sulfate, Imdur, Coreg, Levemir, NovoLog, Lortab, and hydralazine. SOCIAL HISTORY He lives at home with his . He denies smoking, drug use, or alcohol. FAMILY HISTORY His family history is significant for diabetes. REVIEW OF SYSTEMS CONSTITUTIONAL: No fever, chills, or sweats. EYES: No recent visual problems. EAR, NOSE, MOUTH, AND THROAT: No ear pain, nasal congestion, or sore throat. RESPIRATORY: No shortness of breath or cough. CARDIOVASCULAR: No chest pain, palpitations, or syncope. GASTROINTESTINAL: No nausea, vomiting, or diarrhea. GENITOURINARY: No hematuria. HEMATOLOGIC/LYMPHATIC: Negative for bruising. No swollen lymph glands. ENDOCRINE: No excessive thirst or excessive hunger. MUSCULOSKELETAL: No back pain, neck pain, joint pain, muscle pain, or decreased range of motion. INTEGUMENTARY: No open sores or nonhealing wounds. NEUROLOGIC: Alert and oriented x4. PSYCHIATRIC: No anxiety, depression, or suicidal thoughts or ideation. PHYSICAL EXAMINATION VITAL SIGNS: Temperature is 97.7 orally, pulse is 72, respirations 26, O2 saturation is 100% on nasal cannula at 2 L/minute. His blood pressure is 153/70 on his left leg. GENERAL APPEARANCE: He is well-developed, well-nourished, in no acute distress. HEAD, EARS, EYES, NOSE, AND THROAT: He is normocephalic. Pupils are equal, round, and reactive to light. NECK: Supple, nontender without lymphadenopathy, masses, or thyromegaly. No carotid bruits noted. CARDIAC: Regular rate and rhythm. No murmurs. No peripheral edema, cyanosis, or pallor. LUNGS: Clear to auscultation. ABDOMEN: Positive bowel sounds. Soft, nontender, no distention. No masses or hepatomegaly. MUSCULOSKELETAL: Moves all extremities, full range of motion. Normal muscular development. Upper extremities, left upper extremity has a what appears to be a brachiocephalic fistula placed that has a palpable thrill and palpable pulse. There are no complications to his left upper extremity. It is a protected extremity, so therefore it is not been used. His right upper extremity has significant amount of edema from the mid arm all the way down to the tips of the fingers. He does have signals in his brachial, radial, ulnar, and palmar arch of his right extremity. His right upper extremity is warm to the touch, his greenhouse specialist is weak due to his swelling. His edema is noted to be significant in the right upper extremity and his extremity is very tense and tender to the touch. His bilateral lower extremities demonstrate no deformities or edema. VASCULAR: There is palpable radial pulses in his left wrist; however, there were signals in his right wrist. He has bilateral femoral pulses bilaterally. His popliteal dorsalis pedis and posterior tibialis pulses Unit #: [id number] #: [id number] Patient: NATALYA CROOK are palpable bilaterally. INTEGUMENTARY: Warm and dry. No sores or nonhealing wounds. No hemosiderin deposition. NEUROLOGICAL: Cranial nerves 2 through 12 are grossly intact. Normal strength and sensation bilaterally. PSYCHIATRIC: Oriented to person, place, and time. Demonstrates good judgment and reason. DIAGNOSTIC STUDIES IMAGING STUDIES: We had ordered a right upper extremity arterial ultrasound for assessment of the brachial artery and structures of the arm to determine the increased cause of swelling. Those results are pending and will be notified to our office once they have been obtained. LABORATORY RESULTS: His glucose is 139, BUN 16, and creatinine 3.6. EGFR is 21.8. Sodium 138, potassium 3.7, chloride 96, and CO2 of 31. His INR is 1.1 with a PT of 11.4. White blood cell count is 7.5, hemoglobin 7.5, hematocrit 21.4 with a platelet count of 119. ASSESSMENT Right upper extremity swelling and edema secondary to peripheral IV stick. The plan is to obtain right extremity ultrasound for assessment of the arterial and venous structures to assess the cause of his edema. He is to have an Renard wrap from his right wrist all the way up to his right upper arm to help with swelling. He is to continue to keep his arm at the level above his heart to decrease swelling. We will no further what the plan of care will be once we get the right upper extremity ultrasound. I do not think that this is arterial in nature or warrants emergent intervention at this time due to pulse signals in all the major structures of the arm. Should you have any questions or concerns please feel free to contact our office, our phone number is [phone]. Thank you for allowing us to participate in this patient's care. Dictated by... Madelin Worley APRN for Dimitry Moore M.D. Kim TD: 12/25/2016 13:06 JOB #: [id number] CONSULTATION REPORT Page 1 of 1 X X CONSULTATION REPORT
--- NOTE | ~2016-12-23 | CR72 ---
[facility] A Service of [facility] & [facility] RADIOLOGY TEXT RESULTS PATIENT: NATALYA CROOK LOCATION: [place] [address]10 : [birth year] UNIT #: [id number] AGE: [address]: Lu Wilder MD SEX: M ORDER DR: [id number] [facility] [address] [facility]. [place], [place] [address] [id number] I MR#: [id number] Acc #: [id number] NAME: NATALYA CROOK : 1990 SEX: M STUDY DATE/TIME: 12/23/2016 22:39 UNIT: [facility] ROOM: [facility] STUDY DESCRIPTION: CR Chest Single View Portable Attending Physician: Lu Wilder M.D. Ordering Physician: Sunday Keane M.D. Primary Care Physician: Primary Care Physician No MEDICAL IMAGING REPORT This report is preliminary unless electronic signature is present EXAM Portable chest. HISTORY Dyspnea for two days. Patient had dialysis yesterday. COMPARISON 12/05/2016. FINDINGS This portable view of the chest is abnormal. There are diffuse bilateral infiltrates, left side greater than right and worse than on 12/05/2016. They could represent mild CHF. There seem to be small effusions and there is cardiomegaly. Dictated by... Nicolas Hogan M.D. THIS IS AN ELECTRONICALLY VERIFIED REPORT Nicolas Hogan M.D. at 12/24/2016 12:39 PM Bryce TD: 12/24/2016 09:03 JOB #: [id number] MEDICAL IMAGING REPORT Page 1 of 1 COPY
--- NOTE | ~2016-12-23 | US138 ---
[facility] A Service of [facility] & [facility] RADIOLOGY TEXT RESULTS PATIENT: NATALYA CROOK [address]ATION: [address] : [birth year] UNIT #: [id number] AGE: [address]: Lu Wilder MD SEX: M ORDER DR: [id number] [facility] [address] [facility] [place], [place] [address] [id number] I MR#: [id number] Acc #: [id number] NAME: NATALYA CROOK : 1990 SEX: M STUDY DATE/TIME: 12/25/2016 13:26 UNIT: [facility] ROOM: [facility] STUDY DESCRIPTION: US [employer] Attending Physician: Lu Wilder M.D. Ordering Physician: Lu Wilder M.D. MEDICAL IMAGING REPORT This report is preliminary unless electronic signature is present EXAM Right upper extremity arterial duplex date of exam 12/25/2016 HISTORY Right brachial artery pseudoaneurysm follow-up. FINDINGS The right brachial artery is noted throughout its course to be widely patent without stenosis There are normal waveforms that are triphasic throughout with a velocity of the antecubital fossa of 106 cm/sec. The ulnar and radial arteries have triphasic waveforms with normal velocities. The previously identified pseudoaneurysm shows no evidence of continued flow. There is a small hematoma noted next to the brachial artery but no color flow outside of the brachial artery. IMPRESSION No evidence of right brachial artery pseudoaneurysm. Dictated by... Dimitry Moore M.D. THIS IS AN ELECTRONICALLY VERIFIED REPORT Dimitry Moore M.D. at 12/31/2016 10:33 AM NATALIA/he TD: 12/25/2016 18:28 JOB #: [id number] MEDICAL IMAGING REPORT Page 1 of 1 COPY
--- NOTE | ~2016-12-23 | HP ---
Unit #: [id number] #: [id number] Patient: NATALYA CROOK [id number] [address] [place], [place] [address] [id number] I MR#: [id number] NAME: NATALYA CROOK ROOM: 23020 Age: 26 Sex: M Admission Date: 12/24/2016 : 1990 Attending Physician: Burak Dukes M.D. Primary Care Physician: No Primary Care Physician HISTORY AND PHYSICAL CHIEF COMPLAINT Shortness of breath, respiratory distress. DISCUSSION This is a 26-year-old gentleman who has end stage renal disease currently on hemodialysis. He had a renal transplant 02/2013, which is fair. Later on he on dialysis, history of anemia of chronic disease, thrombocytopenia, uncontrolled diabetes, hypertension, chronic pancreatitis, gastroparesis, anemia or chronic disease, thrombocytopenia, anxiety, depression, chronic pain. He was brought to the emergency room with chief complaint of having shortness of breath. The patient was found to be blood pressure elevated to 184/114, hypoxic on ABG and he was placed on BiPAP and central line is being placed. He is currently on BiPAP. He has to followup sodium. His labs shows sodium 128, potassium 4.7, glucose 613, BUN 38, creatinine 7.3 and his beta hydroxybutyrate is 2.61. Currently he is on BiPAP and on Nitrol drip He is not able to give me any history. He is opening to eyes to questions but he is right now on the BiPAP. Most of information obtained from reviewing from old chart. PAST MEDICAL HISTORY 1. 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 He apparently underwent renal transplant at age 12 , which was failed latera one and he is receiving dialysis right now on Saturday, and Saturdays. 2. History of type 2 diabetes since age 12. 3. Hypertension. 4. Chronic pancreatitis. 5. History of hypertensive crisis. 6. History of (1) . 7. Thrombocytopenia. 8. History of gastroparesis and Couch esophagus. 9. Anxiety and depression. 10. Chronic pain. PAST SURGICAL HISTORY 1. Left upper extremity fistula. 2. Right knee surgery. 3. Hip surgery. 4. Ankle surgery. 5. History of exploratory laparotomy and removal of transplant kidney. 6. History of EGD on 10/29/2016 and shows a small segment of Couch esophagus, as well as gastritis, prominent gastric and cardiac varices. Unit #: [id number] #: [id number] Patient: NATALYA CROOK SOCIAL HISTORY The patient lives with . Indicates no tobacco. No alcohol. No illicit drug use. FAMILY HISTORY Notable for both parents having diabetes. ALLERGIES Iodinated contrast, codeine, amoxicillin, and morphine. MEDICATION FROM HOME 1. Sodium bicarbonate. 2. Clonidine. 3. Minoxidil. 4. Norvasc. 5. Neurontin. 6. Paxil. 7. Reglan. 8. Zantac. 9. Renvela. 10. CellCept. 11. PhosLo. 12. Lipitor. 13. Ferrous sulfate. 14. Imdur. 15. Coreg. 16. Senna. 17. Levemir. 18. NovoLog 19. Lortab 5/325. 20. Hydralazine PHYSICAL EXAMINATION GENERAL: 56--year-old gentleman currently on the BiPAP with mild respiratory distress. male who is awake, alert, on BiPAP. VITAL SIGNS: Temp 99.1, heart rate 91, respiratory rate 28, blood pressure 184/111. t recently 183/109. HEENT: Head is atraumatic. Mucous membranes are moist. NECK: Supple. Trachea is midline. HEART: S1 and S2 regular rate and rhythm diminished. LUNGS: Bilateral rhonchi and crackles positive. ABDOMEN: Soft, nontender, and nondistended. EXTREMITIES: To inspection normal. No cyanosis, no clubbing, and no edema. NEUROLOGIC: Alert, wake, following commands. SKIN: Warm and dry. DIAGNOSTIC STUDIES LABORATORY STUDIES: Sodium 128, potassium 4.7, chloride 91, CO2 23, glucose 613. BUN 38, creatinine 7.3, AST 11, ALT 9, beta hydroxybutyrate 2.61. White count 7, hemoglobin 7.8, hematocrit 22.7, platelet is 86. ABG - pH 7.42, pCO2 79, PO2 71. ASSESSMENT AND PLAN 1. Acute hypoxic respiratory failure. Will keep the patient ICU and placed on BiPAP. 2. Shortness of breath, fluid overload. Chest x-ray shows diffuse bilateral infiltrate, empirically started on IV antibiotic Zosyn. Unit #: [id number] #: [id number] Patient: NATALYA CROOK Nephrology to evaluate for possible dialysis. 3. Diabetes with hyperglycemia, increase beta hydroxybutyrate, place on an insulin drip in INTENSIVE CARE UNIT. 4. Uncontrolled hypertension with a history of hypertensive crisis. Will keep the patient on Nitrol drip right now. 5. Hyponatremia secondary to hyperglycemia. 6. History of type 2 insulin dependent diabetes. 7. End stage renal disease on hemodialysis. 8. Anemia of chronic disease. 9. History of thrombocytopenia. 10. Gastroparesis with Couch esophagus. 11. History of chronic pancreatitis with chronic pain. 12. Anxiety and depression. 13. DVT prophylaxis. Will place the patient on SCDs. Dictated by Ludin De Los Santos/sujatha TD: 12/24/2016 06:56 JOB #: [id number] HISTORY AND PHYSICAL Page 1 of 1 X X HISTORY AND PHYSICAL
--- NOTE | ~2016-12-23 | A ---
[facility] Nutrition Therapy DATE: 12/24/16 Patient: NATALYA CROOK Physician: TERELL Address: [address] [place] [address] Room/Bed: [address], Zip: [place] [address] Admit Date: 12/24/16 Date of : [birth year] Height: 5 3 Weight: 137 62.5 NUTRITIONAL ASSESSMENT: REASON: PT SEEN FOR DX + NPO IN ICU ASSESSMENT PT IS 26 Y.O. MALE ADMITTED FOR DKA, FLUID OVERLOAD, SOA PMH: ESRD ON HD, UNCONTROLLED DM, GASTROPARESIS, HTN, FAITH'S ESOPHAGUS, CHRONIC PANCREATITIS, ANEMIA, ANXIETY, DEPRESSION, GASTRITIS Anthropometrics: 5'3", WT: 137# (62 KG), BMI: 24.3 Labs: GLU: 139, CREAT: 3.6, ALB: 3.2, ALT: 9, A1c: 7.9 (10/25/16), GFR: 21.8 Meds: IV LEVAQUIN, NACL, PHOSLO, PEPCID, REGLAN, FERROUS GLUCONATE, ZOFRAN I/O & Bowel function: NOT AVAILABLE AT THIS TIME Skin Integrity: NO KNOWN SKIN ISSUES EDEMA: RUE EDEMA Estimated Nutrition Needs: INCREASED NEEDS 2' PMH, CURRENT CONDITION Assessment: CHART REVIEWED AND EVENTS NOTED. PT SEEN FOR DX + NPO IN ICU ASSESSMENT. PT SLEEPY/LETHARGIC AT TIME OF VISIT-PT DID NOT WAKE TO VERBAL CUES. PT NPO 2' DKA PROTOCOL. AVERAGE WEIGHT IN [facility] IN OCTOBER-NOVEMBER 2016 WAS ~148#. PT NOT APPROPRIATE FOR DIET EDUCATION AT THIS TIME. THIS RD LEFT WRITTEN CC DIET EDUCATION AT BEDSIDE. RD TO FOLLOW. SEE RECOMMENDATIONS BELOW. Dx: ALTERED NUTRIENT NEEDS R/T DX, CURRENT CONDITION AEB NPO STATUS. -IMPAIRED GLYCEMIC CONTROL R/T PMH, DX AEB ELEVATED BLOOD SUGAR LEVELS, A1c OF 7.9. Intervention: 1. NPO 2. WRITTEN DIET EDUCATION LEFT AT BEDSIDE Monitoring, Evaluation and Goals: 1. ORAL INTAKE; ADVANCE DIET AND CONSUME >50% OF MEALS W/NO C/O N/V/D 2. WEIGHTS; PROMOTE WEIGHT MAINTENANCE; PREVENT WEIGHT LOSS 3. LABS; WNL: GLU, LYTES 4. GI; PROMOTE REGULAR GI FUNCTION MONITOR: -DIET ADVANCEMENT -PO INTAKE/APPETITE [facility] Nutrition Therapy DATE: 12/24/16 Patient: NATALYA CROOK Physician: TERELL Address: [address] [place] [address] Room/Bed: [address], Zip: [place] [address] Admit Date: 12/24/16 Date of : [birth year] Height: 5 3 Weight: 137 62.5 -WEIGHTS -EDUCATION NEEDS Recommendations: 1. ONCE MEDICALLY FEASIBLE, ADVANCE DIET TOLERATED TO CC+ 2 GM NA + LOW FAT DIET 2' PMH 2. CONSIDER ADDING GLUCERNA SHAKES OR NEPRO SHAKES BID, IF PO INTAKE <50%, FOR ADDITIONAL PROTEIN AND KCAL 3. ENCOURAGE PO INTAKE ONCE DIET ADVANCES 4. CONSULT RD IF FURTHER DIET EDUCATION REQUESTED/NEEDED RD WILL F/U PER PROTOCOL PT IS MILD/MODERATELY COMPROMISED Respectfully, DUDLEY FLORES MS, RD, LD [facility] cc: client file
--- NOTE | ~2016-12-23 | EKG ---
PATIENT: NATALYA CROOK UNIT #: [id number] Ventricular Rate: 91 BPM Atrial Rate: 91 BPM P-R Interval: 152 ms QRS Duration: 98 ms Q-T Interval: 378 ms QTC Calculation(Bezet): 464 ms P Creston: 27 degrees Calculated T Creston: 34 degrees Diagnosis Line: Normal sinus rhythm Diagnosis Line: Normal ECG Diagnosis Line: When compared with ECG of 05-DEC-2016 14:51, Diagnosis Line: No significant change was found Diagnosis Line: Confirmed by CARTER STAFFORD MD ([id number]) on Diagnosis Line: 12/24/2016 5:47:52 PM INTERPRETING MD: ZANDRA
--- NOTE | ~2016-12-23 | CO ---
Unit #: [id number] #: [id number] Patient: NATALYA CROOK [id number] [address] [address] [id number] I MR#: [id number] NAME: NATALYA CROOK ROOM: CIC2 Age: 26 Sex: M Admission Date: 12/24/2016 : 1990 Attending Physician: Lu Wilder M.D. Primary Care Physician: Ariane Primary Care Physician Consultation Date: 12/24/2016 CONSULTATION REPORT REASON FOR CONSULT ICU management. HISTORY OF PRESENT ILLNESS This is a 26-year-old male who is a very poor historian with complex past medical history, including endstage renal disease - on hemodialysis with renal transplant in 2012, thrombocytopenia, anemia, uncontrolled diabetes and hypertension who presented to the emergency room with the chief complaint of progressive shortness of breath. The patient was found to be with elevated blood pressure up to a systolic of 184 with diastolic of 114 and also extremely elevated blood sugar, more than 600. The patient was placed on BiPAP, and chest x-ray showed significant bilateral pulmonary edema. Peripheral venous access was attempted in the right arm; however, arterial stick was obtained that lead to significant edema in the right upper extremity. A central line was placed in the femoral site on the right side. The patient currently is on BiPAP, and he appears comfortable; however, he is a poor historian and barely answering questions, but he is easy to arouse. PAST MEDICAL HISTORY 1. Endstage renal disease. 2. Status post renal transplant in 2012. 3. Diabetes. 4. Hypertension. 5. Chronic pancreatitis. 6. Gastroparesis. 7. Thrombocytopenia. 8. Malnutrition. 9. Couch esophagus. 10. Anxiety. 11. Depression. PAST SURGICAL HISTORY 1. Left upper extremity fistula. 2. Right knee surgery. 3. Hip surgery. 4. Ankle surgery. 5. Exploratory laparotomy. 6. Right kidney transplant. 7. EGD. Unit #: [id number] #: [id number] Patient: NATALYA CROOK SOCIAL HISTORY The patient lives with his . No history of alcohol, drug abuse or smoking. FAMILY HISTORY Diabetes. ALLERGIES Contrast, codeine, amoxicillin and morphine. HOME MEDICATIONS Bicarbonate, clonidine, minoxidil, Norvasc, Neurontin, Paxil, Reglan, Zantac, CellCept, PhosLo, Lipitor, ferrous sulfate, Imdur, Coreg, Levemir, NovoLog, Lortab, hydralazine. PHYSICAL EXAMINATION GENERAL: The patient is ill appearing, on BiPAP. VITAL SIGNS: Temperature 99.1, blood pressure 163/72, heart rate 81, O2 saturation 98% on BiPAP. HEENT: Atraumatic, normocephalic. PERRLA, EOMI. NECK: Supple. No JVD. No lymphadenopathy. CHEST: Bilateral fine rhonchi. HEART: S1, S2. No murmur, gallops or rubs. ABDOMEN: Soft, nontender. Bowel sounds positive. No hepatosplenomegaly. EXTREMITIES: With +2 edema in the right upper extremity but positive pulse in all extremities. SKIN: No rashes. CLIENT SUPPORT ASSOCIATE: Patient is lethargic but easy to arouse. He answers simple questions. DIAGNOSTIC STUDIES LABS: Creatinine 3.6, sodium 138, CO2 31. White blood count 7.7, platelets 119. IMAGING: Chest x-ray consistent with significant by pulmonary edema. ASSESSMENT 1. Acute hypoxic respiratory failure. 2. Hypertensive emergency. 3. Uncontrolled diabetes. 4. Pulmonary edema. 5. Endstage renal disease. 6. Status post renal transplant. 7. Chronic anemia. 8. Thrombocytopenia. 9. Noncompliance. PLAN 1. Patient will be continued on BiPAP, and we will liberate off as tolerated. 2. Status post STAT hemodialysis with fluid removal. 3. Blood pressure control with nitro drips. 4. Will discontinue insulin drip and change to Levemir. 5. Okay for diet when he is more awake. 6. SCDs. 7. Will discontinue all antibiotics and watch clinically. NOTE: I would like to thank you for allowing me to be part of this Unit #: [id number] #: [id number] Patient: NATALYA CROOK patient's care. Dictated by... Ludin Landis TD: 12/24/2016 10:58 JOB #: [id number] CONSULTATION REPORT Page 1 of 1 X PAUL BEARD MD X CONSULTATION REPORT
[~2016-12-23 21:23] MED LIST changes: +CARVEDILOL25 MG PO; +CELLCEPT250 MG PO; +FERROUS SULFAT325 MG PO; +IMDUR-ER60 M1 PO; +LEVEMIR FL100 UNIT/1 SUBQ; +LIPITOR80 MG PO; +LORTAB 5-325 M1 EACH PO; +NOVOLOG FL100 UNIT/1 SUBQ; +PHOSLO667 MG PO; +PREDNISONE5 M1 PO; +SENNA8.6 M1 PO
[2016-12-23 21:37] LABS: ARTERIAL BLOOD GAS ALLEN TEST NORMAL; ARTERIAL BLOOD GAS ART SITE RIGHT RADIAL; ARTERIAL BLOOD GAS CARBOXY HB 2.2 %sat (0.0-9.0); ARTERIAL BLOOD GAS DELIVERY NON REBREATHER MASK; ARTERIAL BLOOD GAS HCO3 25.1 mmol/L; ARTERIAL BLOOD GAS MET HB 0.9 %sat (0.0-2.0); ARTERIAL BLOOD GAS PCO2 39.9 mmHg (35.0-45.0); ARTERIAL BLOOD GAS PO2 71.5 mmHg (80.0-100); ARTERIAL BLOOD GAS pH 7.407 (7.350-7.450); ARTERIAL DRAW? YES
[2016-12-23 23:35] LABS: BASOPHIL# 0.1 X10e3 (0-0.3); BASOPHIL% 0.7 % (0-2.5); EOSINOPHIL# 0.1 X10e3 (0-0.7); EOSINOPHIL% 0.9 % (0.0-7.0); HEMATOCRIT 22.7 % (38.0-50.0); HEMOGLOBIN 7.8 gm/dL (13.0-16.0); LYMPHOCYTE# 0.4 X10e3 (1.0-3.5); LYMPHOCYTE% 5.7 % (17.0-45.0); MEAN CELL VOLUME 80.1 FL (83-96); MEAN CORPUSCULAR HEMOGLOBIN 27.4 PG (28-34); MEAN CORPUSCULAR HGB CONC 34.2 g/dL (30-36); MEAN PLATELET VOLUME 8.8 FL (6.5-11.5); MONOCYTE# 0.3 X10e3 (0-1.0); NEUTROPHIL# 6.8 X10e3 (1.5-7.1); NEUTROPHIL% 88.7 % (40-75); RED BLOOD COUNT 2.84 X10e (3.90-5.60); RED CELL DISTRIBUTION WIDTH 16.9 % (11.0-15.5); WHITE BLOOD COUNT 7.7 X10e3 (4.0-10.5)
[2016-12-23 23:55] LABS: DIFF IND YES; PLATELET COUNT 86 X10e3 (140-420)
[2016-12-24 00:01] LABS: ALBUMIN SERUM 3.2 g/dL (3.5-5.0); BETA HYDROXYBUTYRATE 2.61 MMOL/L (0.02-0.27); BILIRUBIN,TOTAL 2.1 mg/dL (0.2-2.0); BUN/CREATININE RATIO 5.2; CALCIUM SERUM 8.8 mg/dL (8.4-10.2); CREATININE SERUM 7.3 mg/dL (0.6-1.4); GLOM FILT RATE Estimated 9.3 mL/min (>60); POTASSIUM 4.7 mmol/L (3.5-5.1); PROTEIN TOTAL SERUM 6.6 g/dL (6.0-8.3)
[2016-12-24 00:03] LABS: ANISOCYTOSIS SL; NUCLEATED RED BLOOD CELL 1 /100 (0); PLATELET ESTIMATE DECREASED (NORMAL)
[2016-12-24 07:38] LABS: BASOPHIL# 0.1 X10e3 (0-0.3); BASOPHIL% 0.7 % (0-2.5); EOSINOPHIL# 0.2 X10e3 (0-0.7); EOSINOPHIL% 2.4 % (0.0-7.0); HEMATOCRIT 21.4 % (38.0-50.0); HEMOGLOBIN 7.5 gm/dL (13.0-16.0); LYMPHOCYTE# 0.9 X10e3 (1.0-3.5); LYMPHOCYTE% 12.3 % (17.0-45.0); MEAN CORPUSCULAR HEMOGLOBIN 27.2 PG (28-34); MEAN CORPUSCULAR HGB CONC 35.3 g/dL (30-36); MEAN PLATELET VOLUME 8.6 FL (6.5-11.5); MONOCYTE# 0.6 X10e3 (0-1.0); NEUTROPHIL# 5.7 X10e3 (1.5-7.1); NEUTROPHIL% 76.6 % (40-75); PLATELET COUNT 119 X10e3 (140-420); RED BLOOD COUNT 2.77 X10e (3.90-5.60); RED CELL DISTRIBUTION WIDTH 17.5 % (11.0-15.5); WHITE BLOOD COUNT 7.5 X10e3 (4.0-10.5)
[2016-12-24 07:39] LABS: MEAN CELL VOLUME 77.1 FL (83-96)
[2016-12-24 07:43] LABS: DIFF IND NO
[2016-12-24 09:38] LABS: CALCIUM SERUM 9.1 mg/dL (8.4-10.2); POTASSIUM 3.7 mmol/L (3.5-5.1)
[2016-12-24 09:39] LABS: BUN/CREATININE RATIO 4.44; CREATININE SERUM 3.6 mg/dL (0.6-1.4); GLOM FILT RATE Estimated 21.8 mL/min (>60)
[2016-12-25 05:43] LABS: ALBUMIN SERUM 2.4 g/dL (3.5-5.0); BILIRUBIN,TOTAL 0.6 mg/dL (0.2-2.0); BUN/CREATININE RATIO 6.66; CALCIUM SERUM 8.8 mg/dL (8.4-10.2); CREATININE SERUM 5.4 mg/dL (0.6-1.4); GLOM FILT RATE Estimated 13.4 mL/min (>60); MAGNESIUM 1.8 mg/dL (1.6-3.0); PROTEIN TOTAL SERUM 4.8 g/dL (6.0-8.3)
[2016-12-25 07:40] LABS: BASOPHIL% 0.8 % (0-2.5); EOSINOPHIL# 0.1 X10e3 (0-0.7); EOSINOPHIL% 3.5 % (0.0-7.0); HEMATOCRIT 15.6 % (38.0-50.0); LYMPHOCYTE% 28.6 % (17.0-45.0); MEAN CELL VOLUME 78.4 FL (83-96); MEAN CORPUSCULAR HGB CONC 34.5 g/dL (30-36); MEAN PLATELET VOLUME 8.9 FL (6.5-11.5); MONOCYTE# 0.2 X10e3 (0-1.0); MONOCYTE% 6.6 % (3.0-12.0); NEUTROPHIL# 2.1 X10e3 (1.5-7.1); NEUTROPHIL% 60.5 % (40-75); PLATELET COUNT 94 X10e3 (140-420); RED BLOOD COUNT 1.99 X10e (3.90-5.60); RED CELL DISTRIBUTION WIDTH 17.3 % (11.0-15.5)
[2016-12-25 07:41] LABS: WHITE BLOOD COUNT 3.5 X10e3 (4.0-10.5)
[2016-12-25 07:43] LABS: HEMOGLOBIN 5.4 gm/dL (13.0-16.0)
[2016-12-25 07:49] LABS: DIFF IND YES
[2016-12-25 08:47] LABS: PLATELET ESTIMATE DECREASED (NORMAL)
[2016-12-25 08:48] LABS: ANISOCYTOSIS SL; HYPOCHROMIA MOD
== END 2016-12-25 19:30 | disposition left against medical advice (07) | DRG 189 ==
LOC: CED 21:23 → CEDOF 12-24 00:37 → CED 12-24 00:37 → CEDOF 12-24 00:40 → CICCU2 12-24 07:46
PROVIDERS: Emergency Medicine; Internal Medicine Nephrology
PROC: 5A1D00Z (ICD-10-PCS; principal; 2016-12-24)
DX: J96.01 Acute respiratory failure with hypoxia (principal); I12.0 Hypertensive chronic kidney disease with stage 5 chronic kidney disease or end stage renal disease; N18.6 End stage renal disease; E11.43 Type 2 diabetes mellitus with diabetic autonomic (poly)neuropathy; D69.6 Thrombocytopenia, unspecified; K31.84 Gastroparesis; Z94.0 Kidney transplant status; E87.1 Hypo-osmolality and hyponatremia; I16.1 Hypertensive emergency; Z99.2 Dependence on renal dialysis; Z91.15 Patient's noncompliance with renal dialysis; F41.9 Anxiety disorder, unspecified; F32.9 Major depressive disorder, single episode, unspecified; G89.29 Other chronic pain; E11.65 Type 2 diabetes mellitus with hyperglycemia; Z79.4 Long term (current) use of insulin; D64.89 Other specified anemias; K22.70 Barrett's esophagus without dysplasia; Z91.19 Patient's noncompliance with other medical treatment and regimen; Z91.041 Radiographic dye allergy status; R60.9 Edema, unspecified
CPT/HCPCS: 36415; 36600; 71010; 80048; 80053; 82010; 82308; 82803; 82947; 83735; 83880; 84100; 85025; 86850; 86900; 86901; 86923; 87040; 93005; 93931; 94640; 94660; 94761; 99285; J0360; J1644; J1815; J1956; J3010; J3370; J7517; P9016

== ENCOUNTER 2017-01-08 18:46 | Inpatient (IN) | payer OTHER ==
--- NOTE | ~2017-01-08 | CO ---
Unit #: [id number] #: [id number] Patient: NATALYA CROOK [id number] [address] [address] [id number] I MR#: [id number] NAME: NATALYA CROOK ROOM: [facility]CU3 Age: 26 Sex: M Admission Date: 01/08/2017 : 1990 Attending Physician: Marzena Merchant M.D. Primary Care Physician: No Primary Care Physician Consultation Date: 01/09/2017 CONSULTATION REPORT REASON FOR CONSULT ICU management. HISTORY OF PRESENT ILLNESS This is a very unfortunate 26-year-old male who is well known to our service from previous admission with past medical history significant for end stage renal disease, type 1 diabetes, hypertension, who presented to the emergency room with a cardiac arrest. stated that the patient was at dialysis yesterday but when she picked him up he was complaining to her that he wasn't feeling well and he was feeling clammy. witnessed sudden onset of seizure at home and patient immediately after that became unresponsive. called EMS who advised her to get him out of bed to the floor and start CPR. The did that for maybe ten minutes until a fire worker arrived. The patient was intubated in field and he was resuscitated. However, stated that on the way outside his home, his ET-tube came out. Upon presentation to the ED, the patient had a pulse but his ET-tube was like 10 cm far from the martha so he was reintubated again. He was completely unresponsive in the ED with no gag, cough, corneal or painful stimuli response. His CT head also in the emergency room was consistent with global severe anoxic brain injury. PAST MEDICAL HISTORY 1. End stage renal disease. 2. Type 1 diabetes. 3. Hypertension. 4. Chronic pancreatitis. 5. Gastroparesis. PAST SURGICAL HISTORY 1. ORIF. 2. Exploratory laparotomy. 3. Partial colon resection. 4. EGD. ALLERGIES Contrast dye, codeine, amoxicillin and morphine. HOME MEDICATIONS 1. Clonidine. 2. Minoxidil. 3. Norvasc. Unit #: [id number] #: [id number] Patient: NATALYA CROOK 4. Neurontin. 5. Paxil. 6. Reglan. 7. Zantac. 8. Renvela. 9. CellCept. 10. PhosLo. 11. Lipitor. 12. Iron. 13. Imdur. 14. Coreg. 15. Senna. 16. Levemir. 17. NovoLog. 18. Lortab. 19. Hydralazine. FAMILY HISTORY Coronary artery disease and hypertension. SOCIAL HISTORY The patient lives with his . He is a lifelong nonsmoker, he doesn't drink alcohol or use illicit drugs. REVIEW OF SYSTEMS Twelve point review of systems were unable to obtain due to his condition but, from his , he was feeling bad and he was clammy and then had a seizure. PHYSICAL EXAMINATION GENERAL: The patient is unresponsive. VITAL SIGNS: Blood pressure 127/71, respiratory rate 14 on the vent, O2 saturation 98%. HEENT: Atraumatic, normocephalic. NECK: Supple. No JVD, no lymphadenopathy. CHEST: Bilateral fine rhonchi. HEART: S1, S2. No murmur, gallops or rubs. ABDOMEN: Soft, distended but nontender. EXTREMITIES: No edema or cyanosis. SKIN: No rashes. CHEMIST ORGANIC: The patient is completely unresponsive, off sedation. He is not withdrawing to painful stimuli. No gag, cough or corneal reflexes and his respiratory rate was 8 in matching with the rate on the ventilator when I dropped it down. DIAGNOSTIC STUDIES LABORATORY: Creatinine 2.5, potassium 3.0, CO2 31, white blood count 6.7, hemoglobin 6.7. ASSESSMENT 1. Acute hypoxic respiratory failure. 2. Status post cardiac arrest. 3. Severe anoxic brain injury. 4. End stage renal disease. 5. Diabetes. 6. Seizure. 7. Aspiration pneumonia. Unit #: [id number] #: [id number] Patient: NATALYA CROOK PLAN 1. Unfortunately, patient had extended period of hypoxia prior to EMS arrival and then there is a questionable ET-tube placement en route to the hospital with a chest x-ray confirming a very high ET-tube upon arrival. The patient also suffered a seizure with aspiration per his and likely that led to again prolonged hypoxia and that, in turn, led to severe anoxic brain injury. His CT head in the emergency room was consistent with global severe anoxic brain injury and edema. Due to the above finding, the patient was not a candidate for hypothermia protocol. 2. Will continue patient on support including ventilatory support, IV antibiotics, and blood sugar management. I discussed at length his condition with his and his mother explaining that his chance of meaningful recovery is almost nothing. Family likely is proceeding with compassionate extubation which I agree with. All questions were answered to my best knowledge and ability. Critical care time spent on this patient was 41 minutes. Dictated by... Ludin Landis TD: 01/09/2017 11:33 JOB #: [id number] CONSULTATION REPORT Page 1 of 1 X PAUL BEARD MD X CONSULTATION REPORT
--- NOTE | ~2017-01-08 | DS ---
Unit #: [id number] #: [id number] Patient: NATALYA CROOK [id number] [address] [address] [id number] I MR#: [id number] NAME: NATALYA CROOK ROOM: [facility] Age: Sex: M Admission Date: 01/08/2017 : 1990 Discharge Date: 01/09/2017 Attending Physician: Marzena Merchant M.D. Primary Care Physician: Primary Care Physician No DISCHARGE SUMMARY ADDENDUM TECHS-1st part not in system Patient was terminally extubated by family and on January 09, 2017 at 17:55 p.m. Dictated by... Marzena Merchant M.D. DOTTIE/jeremy TD: 01/11/2017 08:58 JOB #: [id number] DISCHARGE SUMMARY Page 1 of 1 X Marzena Merhcant MD X DISCHARGE SUMMARY
--- NOTE | ~2017-01-08 | CR72 ---
[facility] A Service of [facility] RADIOLOGY TEXT RESULTS PATIENT: NATALYA CROOK LOCATION: [address] : [birth year] UNIT #: [id number] AGE: [address]: Marzena Merchant MD SEX: M ORDER DR: [id number] [facility] [address]. [place], [place] [address] [id number] I MR#: [id number] Acc #: [id number] NAME: NATALYA CROOK : 1990 SEX: M STUDY DATE/TIME: 01/08/2017 21:27 UNIT: [facility] ROOM: [facility] STUDY DESCRIPTION: CR Chest Single View Portable Attending Physician: Bianca Carter M.D. Ordering Physician: Bianca Carter M.D. Primary Care Physician: Primary Care Physician No MEDICAL IMAGING REPORT This report is preliminary unless electronic signature is present EXAM Single view of the chest dated 01/08/2017 2127 hours COMPARISON Single view chest dated 01/08/2017 1944 hours. HISTORY Endotracheal tube placement today. FINDINGS Frontal view of the chest was obtained. Tip of the endotracheal tube is about 3.8 cm from the martha. Mild bilateral pleural effusions are redemonstrated with scattered interstitial disease in the lungs bilaterally, slightly less prominent when compared to the prior study. It could be due to interval improvement or due to technical difference. They are probably related to mild congestion or pneumonia depending on the clinical setting. Minimal associated alveolar disease is also seen in the lungs, particularly the right. IMPRESSION 1. Tip of the endotracheal tube has now been advanced and it is about 3.8 cm from the martha, in better position. 2. Right IJ approach PICC line catheter tip is in the region of the SVC, adequate. 3. There appears to be slightly decreased interstitial and some scattered alveolar opacities in the lungs bilaterally when compared to the prior study. It could be due to interval mild improvement or technical differences. Mild bilateral pleural effusions are stable. [facility] A Service [facility] RADIOLOGY TEXT RESULTS PATIENT: NATALYA CROOK [facility] [birth year] UNIT #: [id number] AGE: [address]: Marzena Merchant MD SEX: M ORDER DR: Dictated by... Chencho Pyle M.D. THIS IS AN ELECTRONICALLY VERIFIED REPORT Chencho Pyle M.D. at 01/09/2017 2:43 PM CPR/mjs TD: 01/09/2017 07:10 JOB #: [id number] MEDICAL IMAGING REPORT Page 1 of 1 COPY
--- NOTE | ~2017-01-08 | HP ---
Unit #: [id number] #: [id number] Patient: NATALYA CROOK [id number] [address] [place], [place] [address] [id number] I MR#: [id number] NAME: NATALYA CROOK ROOM: 11841 Age: 26 Sex: M Admission Date: 01/08/2017 : 1990 Attending Physician: Bianca Carter M.D. Primary Care Physician: No Primary Care Physician HISTORY AND PHYSICAL CHIEF COMPLAINT Resuscitated arrest. HISTORY This 26-year-old male with end-stage renal failure, type 1 diabetes mellitus, hypertension, is admitted as a resuscitated arrest. The patient began to feel ill about two days ago. Today underwent dialysis. When he returned home felt ill, complained of feeling very lightheaded and diaphoretic. His states that his heart rate was as high as 190. His O2 sats dropped to 79%. He then had two to three minutes of a seizurelike event. She called 911, and she began bystander CPR as he lost his pulse. When EMS arrived the patient, I am told, was in [place]. He was given three amps of epi and brought to this emergency department where he did have a pulse. In our ER he was given IV bicarb x2 for a profound mixed metabolic and respiratory acidosis, given 10 units of IV insulin for a serum glucose of 632, and was given an amp of calcium for a potassium of 5.5. He now is breathing above the ventilator, but his pupils really do not react or minimally react to light, no corneal's, no doll's. Chest x-ray shows diffuse infiltrates which could be congestive heart failure. Troponin is indeterminate, and EKG shows a new right bundle branch block. As an aside, the patient's states that he did have an episode of emesis during the abovementioned episode. PAST MEDICAL HISTORY 1. 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 Patient is status post renal transplant at age 12 which later failed. He receives his dialysis Tuesdays, and Saturdays, has a left upper arm fistula or shunt. 2. Type 1 diabetes mellitus since age 12. 3. Hypertension. 4. Chronic pancreatitis. 5. Gastroparesis. 6. ORIF right knee and bilateral hips along with bilateral ankles. 7. Exploratory lap and removal of transplanted kidney. 8. Partial colon resection. 9. 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 Prominent gastric and cardiac varices noted. TIPS procedure was considered but was not felt to be necessary during that admission. Patient was also noted to have possible drug-seeking behavior during that admission. 10. Admission 12/24/2016 for shortness of breath and fluid overload. IV was placed in the arm and there was a possible pseudoaneurysm which Unit #: [id number] #: [id number] Patient: NATALYA CROOK was treated conservatively. ALLERGIES Contrast dye, codeine, amoxicillin, morphine. HOME MEDICATIONS Home medications are uncertain. I do note that December 24, 2016 medication list did include sodium bicarb, clonidine, minoxidil, Norvasc, Neurontin, Paxil, Reglan, Zantac, Renvela, CellCept, PhosLo, Lipitor, iron, Imdur, Coreg, senna, Levemir, NovoLog, Lortab and hydralazine. FAMILY HISTORY CAD and hypertension. SOCIAL HISTORY The patient lives with family. He is a lifelong nonsmoker, does not drink alcohol or use illicit drugs. REVIEW OF SYSTEMS Impossible to obtain as the patient currently is unresponsive, on a ventilator. PHYSICAL EXAMINATION GENERAL: Unresponsive 26-year-old male on a ventilator, he is orally intubated. VITAL SIGNS: His current O2 sats are 88% to 90% on FIO2 of 100%. Temperature has not yet been obtained. The patient's respiratory rate is about 20 which is breathing above the ventilator, blood pressure 143/81, pulse is 99. HEENT: Pupils are dilated, they minimally react, there are no corneal's no doll's. The patient is orally intubated. NECK: His neck is supple, without adenopathy or thyromegaly. There is a right IJ in place. CHEST: Reveals rhonchi. CARDIAC: Normal S1 and S2, without definite murmur. ABDOMEN: Bowel sounds are not present. Mildly distended abdomen. No masses or hepatosplenomegaly. EXTREMITIES: Without edema and no ulcers on the feet. NEUROLOGIC EXAMINATION: The patient is unresponsive on the ventilator. He is breathing above the ventilator. Pupils are minimally reactive and are dilated. Negative corneal's. Negative doll's. DIAGNOSTIC STUDIES ADMISSION LABORATORY: Hematocrit is 25, white blood count is 6.7, platelet count 111. Troponin 0.65. SMA-12: Glucose is 632, BUN 25, creatinine 5.5, sodium 133, potassium 5.5, chloride 94, CO2 22, calcium is 12, albumin is 3. Coags are normal. IMAGING: Chest x-ray: ET tube needs to be advanced. Evidence of CHF and edema. CARDIOVASCULAR: EKG sinus rhythm, rate 90, right bundle branch block. The right bundle branch block is thought to be new. ASSESSMENT 1. Resuscitated arrest. The patient did complain of shortness of breath, then had a seizurelike activity. Chest x-ray is most consistent with fluid overload although the patient may have Unit #: [id number] #: [id number] Patient: NATALYA CROOK. 2. End-stage real failure. Patient underwent hemodialysis today. 3. Hypertension. 4. Insulin dependent diabetes mellitus with uncontrolled diabetes mellitus versus diabetic ketoacidosis. 5. Profound mixed metabolic and respiratory acidosis. 6. Essential hypertension. 7. Likely aspiration 8. Elevated troponin, new right bundle branch block. 9. Likely hypoxic encephalopathy. 10. Evidence of cirrhosis found on previous EGD. PLANS 1. Keppra, head CT, Neurology to see. 2. Insulin drip for now. 3. Will empirically treat with vancomycin and meropenem pending culture results and repeat chest x-ray. 4. Pulmonary consultation, call was made to Dr. Bui who will be seeing the patient and has given orders. 5. Serial EKG, cardiac enzymes, obtain echo and ask Cardiology to see. 6. DVT and gastritis prophylaxis. 7. Venous Dopplers of the legs. 8. Repeat ABG following reintubation. ET tube was attempted to be advanced and the patient needed to be reintubated in the ER. 9. Long-term prognosis is very guarded. Critical care time spent with this patient was 40 minutes. Case was discussed with the patient's . Dictated by Bianca Carter M.D. AML/cf TD: 01/08/2017 22:11 JOB #: [id number] HISTORY AND PHYSICAL Page 1 of 1 X Bianca Carter MD X HISTORY AND PHYSICAL
--- NOTE | ~2017-01-08 | CT71 ---
[facility] A Service of [facility] RADIOLOGY TEXT RESULTS PATIENT: NATALYA CROOK LOCATION: [facility] : [birth year] UNIT #: [id number] AGE: [address]: Marzena Merchant MD SEX: M ORDER DR: [id number] [place], [place] [address] [id number] I MR#: [id number] Acc #: [id number] NAME: NATALYA CROOK : 1990 SEX: M STUDY DATE/TIME: 01/08/2017 22:55 UNIT: [facility] ROOM: [facility] STUDY DESCRIPTION: CT Head Wo Contrast Attending Physician: Bianca Carter M.D. Ordering Physician: Bianca Carter M.D. Primary Care Physician: Primary Care Physician No MEDICAL IMAGING REPORT This report is preliminary unless electronic signature is present EXAM CT head without contrast INDICATION Cardiac arrest. Unresponsive patient today. PROCEDURE Unenhanced CT head. This CT exam was performed with one or more of the following radiation dose reduction techniques: automatic exposure control, adjustment of mA and/or kV according to patient size, and iterative reconstruction. COMPARISON None FINDINGS The findings. There is diffuse loss of navrarete-white differentiation, with sulcal effacement and effacement of the basilar cisterns. No depressed calvarial fracture. IMPRESSION Diffuse brain edema suspicious for global anoxic injury. Dictated by... Sina Fields M.D. THIS IS AN ELECTRONICALLY VERIFIED REPORT Sina Fields M.D. at 01/09/2017 10:28 PM JORGE/catherine TD: 01/09/2017 08:06 JOB #: [id number] [facility] A Service [facility] RADIOLOGY TEXT RESULTS PATIENT: NATALYA CROOK LOCATION: [facility] : [birth year] UNIT #: [id number] AGE: [address]: Marzena Merchant MD SEX: M ORDER DR: MEDICAL IMAGING REPORT Page 1 of 1 COPY
--- NOTE | ~2017-01-08 | EKG ---
PATIENT: NATALYA CROOK UNIT #: [id number] Ventricular Rate: 76 BPM Atrial Rate: 76 BPM P-R Interval: 170 ms QRS Duration: 110 ms Q-T Interval: 466 ms QTC Calculation(Bezet): 524 ms P [place]: 34 degrees Calculated R [place]: 39 degrees Calculated T [place]: 52 degrees Diagnosis Line: Normal sinus rhythm Diagnosis Line: Nonspecific T wave abnormality Diagnosis Line: RSR' or QR pattern in V1 suggests right Diagnosis Line: ventricular conduction delay Diagnosis Line: Prolonged QT Diagnosis Line: Abnormal ECG Diagnosis Line: When compared with ECG of 08-JAN-2017 18:58, Diagnosis Line: (unconfirmed) Diagnosis Line: Incomplete right bundle branch block has replaced Diagnosis Line: Right bundle branch block Diagnosis Line: Confirmed by CARTER STAFFORD MD ([id number]) on Diagnosis Line: 01/09/2017 11:07:53 AM INTERPRETING MD: ZANDRA
--- NOTE | ~2017-01-08 | EKG ---
PATIENT: NATALYA CROOK UNIT #: [id number] Ventricular Rate: 89 BPM Atrial Rate: 89 BPM P-R Interval: 166 ms QRS Duration: 168 ms Q-T Interval: 474 ms QTC Calculation(Bezet): 576 ms P [place]: 13 degrees Calculated R [place]: 133 degrees Calculated T [place]: 15 degrees Diagnosis Line: Normal sinus rhythm Diagnosis Line: Right bundle branch block Diagnosis Line: Abnormal ECG Diagnosis Line: Diagnosis Line: Confirmed by CARTER STAFFORD MD ([id number]) on Diagnosis Line: 01/09/2017 11:02:46 AM INTERPRETING MD: ZANDRA
--- NOTE | ~2017-01-08 | CR72 ---
[facility] A Service of [facility] RADIOLOGY TEXT RESULTS PATIENT: NATALYA CROOK [facility] [birth year] UNIT #: [id number] AGE: [address]: Marzena Merchant MD SEX: M ORDER DR: [id number] [facility] [address] [place], [place] [address] [id number] I MR#: [id number] Acc #: [id number] NAME: NATALYA CROOK : 1990 SEX: M STUDY DATE/TIME: 01/08/2017 19:44 [facility] STUDY DESCRIPTION: CR Chest Single View Portable Attending Physician: Bianca Carter M.D. Ordering Physician: Robb Dominguez M.D. Primary Care Physician: Primary Care Physician No MEDICAL IMAGING REPORT This report is preliminary unless electronic signature is present EXAM Single view of the chest, COMPARISON Frontal single view of the chest dated 12/23/2016 HISTORY Status post full arrest. The patient has a central line and endotracheal tube placed. FINDINGS Frontal view of the chest was obtained. Right IJ approach PICC line catheter is in the superior to mid aspect of the SVC, in adequate position. The tip of the endotracheal tube is in the neck and it has to be advanced by another 7-8 cm and reimaged. It is about 11.4 cm from the martha. Diffuse prominence of the interstitial markings with some alveolar opacities are noted in the lungs bilaterally, likely relating to pulmonary vascular congestion and edema. It appears to be slightly improved when compared to the prior study from 12/23/2016 where there was more alveolar opacities noted. Part of it could also be technical. Bilateral previously noted pleural effusions and associated atelectasis/infiltrates have improved. Stable mild cardiomegaly. No obvious pneumothorax. Dictated by... Chencho Pyle M.D. THIS IS AN ELECTRONICALLY VERIFIED REPORT Chencho Pyle M.D. at 01/09/2017 2:43 PM CPR/ljd [facility] A Service of [facility] & [facility] RADIOLOGY TEXT RESULTS PATIENT: NATALYA CROOK LOCATION: [facility]3-21 : [birth year] UNIT #: [id number] AGE: [address]: Marzena Merchant MD SEX: M ORDER DR: TD: 01/09/2017 04:21 JOB #: [id number] MEDICAL IMAGING REPORT Page 1 of 1 COPY
--- NOTE | ~2017-01-08 | DS ---
Unit #: [id number] #: [id number] Patient: NATALYA CRUZ [id number] [address] [address] [id number] I MR#: [id number] NAME: NATALYA CRUZ ROOM: [facility] Age: 26 Sex: M Admission Date: 01/08/2017 : 1990 Discharge Date: 01/09/2017 Attending Physician: Marzena Merchant M.D. Primary Care Physician: No Primary Care Physician DISCHARGE SUMMARY PRINCIPAL DIAGNOSES 1. Severe anoxic brain injury. 2. Status post resuscitative cardiopulmonary arrest. 3. Non-ST segment elevation myocardial infarction. 4. End-stage renal disease maintained on hemodialysis. 5. Insulin-dependent diabetes mellitus, uncontrolled. 6. Mixed respiratory and metabolic acidosis. 7. Respiratory and metabolic alkalosis. 8. Hyperkalemia. 9. Hypokalemia. 10. Aspiration pneumonia. 11. Hypothermia. 12. Probable seizure. 13. History of hypertension. CONSULTANTS 1. Dr. Bui, Pulmonology. 2. Dr. Michael Bui, Nephrology. PROCEDURES 1. Chest x-ray on January 08, 2017. Prominence of interstitial markings noted. 2. Followup chest x-ray, on January 08, 2017, with less prominent interstitial disease in the lungs. 3. CT of the head without contrast, on January 08, 2017, with diffuse brain edema which is suspicious for global anoxic injury. CLINICAL HISTORY AND HOSPITAL COURSE Mr. Cruz is a 26-year-old male with a complex medical history who was brought to the emergency department after a resuscitated arrest. Please refer to H and P for further details. The patient was emergently intubated. Chest x-ray was concerning for congestive heart failure versus aspiration pneumonia. Troponin became elevated and he was admitted to the ICU. Following admission, the patient had a CT scan of the head done revealing significant anoxic brain injury. This unfortunately matched patient's clinical condition, i.e., he lacked all three eye signs. He was also not over breathing the ventilator. Goals of care were discussed with patient's family in particular given his very poor neurologic status and family is agreeable to comfort measures. The patient will withdraw care later this evening when ready and date and time of will be dictated as an addendum. Unit #: [id number] #: [id number] Patient: NATALYA CRUZ Dictated by... Ludin Brewer/iraj TD: 01/11/2017 09:00 JOB #: [id number] DISCHARGE SUMMARY Page 1 of 1 X Marzena Merchant MD X DISCHARGE SUMMARY
[2017-01-08 19:01] LABS: ARTERIAL BLD GAS O2 SATURATION 91.8 % (90.0-100.0); ARTERIAL BLOOD GAS CARBOXY HB 1.2 %sat (0.0-9.0); ARTERIAL BLOOD GAS HCO3 14.4 mmol/L; ARTERIAL BLOOD GAS MET HB 1.4 %sat (0.0-2.0)
[2017-01-08 19:03] LABS: ARTERIAL BLOOD GAS ART SITE RIGHT FEMORAL; ARTERIAL BLOOD GAS DELIVERY VENT; ARTERIAL BLOOD GAS VENT MODE AC; ARTERIAL BLOOD GAS pH 6.848 (7.350-7.450); ARTERIAL DRAW? YES
[2017-01-08 19:59] LABS: BASOPHIL% 0.4 % (0-2.5); EOSINOPHIL# 0.1 X10e3 (0-0.7); EOSINOPHIL% 1.5 % (0.0-7.0); HEMOGLOBIN 8.1 gm/dL (13.0-16.0); LYMPHOCYTE# 0.7 X10e3 (1.0-3.5); LYMPHOCYTE% 10.6 % (17.0-45.0); MEAN CELL VOLUME 84.3 FL (83-96); MEAN CORPUSCULAR HEMOGLOBIN 27.5 PG (28-34); MEAN CORPUSCULAR HGB CONC 32.6 g/dL (30-36); MEAN PLATELET VOLUME 8.4 FL (6.5-11.5); MONOCYTE% 0.4 % (3.0-12.0); NEUTROPHIL# 5.8 X10e3 (1.5-7.1); NEUTROPHIL% 87.1 % (40-75); PLATELET COUNT 111 X10e3 (140-420); RED BLOOD COUNT 2.96 X10e (3.90-5.60); WHITE BLOOD COUNT 6.7 X10e3 (4.0-10.5)
[2017-01-08 20:02] LABS: DIFF IND NO
[2017-01-08 20:12] LABS: POC - CKMB 29.9 ng/mL (0.0-7.9); POC - TROPONIN 0.65 ng/mL (<=0.05)
[2017-01-08 20:13] LABS: INR 1.2; PARTIAL THROMBOPLASTIN TIME 27.8 SECONDS (23.5-31.3); PROTHROMBIN TIME (PATIENT) 12.8 SECONDS (10.0-11.7)
[2017-01-08 20:33] LABS: BILIRUBIN, DIRECT 0.2 mg/dL (0.0-0.2); BILIRUBIN,INDIRECT 0.7 mg/dL (0.0-0.9); BILIRUBIN,TOTAL 0.9 mg/dL (0.2-2.0); BUN/CREATININE RATIO 4.54; CREATININE SERUM 5.5 mg/dL (0.6-1.4); GLOM FILT RATE Estimated 13.1 mL/min (>60); PROTEIN TOTAL SERUM 6.5 g/dL (6.0-8.3)
[2017-01-08 20:34] LABS: POTASSIUM 5.5 mmol/L (3.5-5.1)
[2017-01-08 22:08] LABS: POC - CKMB 41.5 ng/mL (0.0-7.9); POC - TROPONIN 2.25 ng/mL (<=0.05)
[2017-01-08 22:19] LABS: ARTERIAL BLD GAS O2 SATURATION 90.2 % (90.0-100.0); ARTERIAL BLOOD GAS CARBOXY HB 1.3 %sat (0.0-9.0); ARTERIAL BLOOD GAS HCO3 27.7 mmol/L; ARTERIAL BLOOD GAS MET HB 1.3 %sat (0.0-2.0); ARTERIAL BLOOD GAS pH 7.247 (7.350-7.450)
[2017-01-08 22:21] LABS: ARTERIAL BLOOD GAS ALLEN TEST NORMAL; ARTERIAL BLOOD GAS ART SITE RIGHT RADIAL; ARTERIAL BLOOD GAS DELIVERY VENT; ARTERIAL BLOOD GAS PCO2 63.7 mmHg (35.0-45.0); ARTERIAL BLOOD GAS PO2 79.4 mmHg (80.0-100); ARTERIAL BLOOD GAS VENT MODE AC; ARTERIAL DRAW? YES
[2017-01-09 01:37] LABS: BUN/CREATININE RATIO 5.78; CREATININE SERUM 5.7 mg/dL (0.6-1.4); GLOM FILT RATE Estimated 12.5 mL/min (>60); POTASSIUM 3.7 mmol/L (3.5-5.1)
[2017-01-09 01:38] LABS: CALCIUM SERUM 8.8 mg/dL (8.4-10.2)
[2017-01-09 04:29] LABS: ARTERIAL BLD GAS O2 SATURATION 97.4 % (90.0-100.0); ARTERIAL BLOOD GAS CARBOXY HB 1.1 %sat (0.0-9.0); ARTERIAL BLOOD GAS HCO3 33.2 mmol/L; ARTERIAL BLOOD GAS MET HB 1.3 %sat (0.0-2.0); ARTERIAL BLOOD GAS PCO2 31.8 mmHg (35.0-45.0)
[2017-01-09 04:31] LABS: ARTERIAL BLOOD GAS pH 7.627 (7.350-7.450)
[2017-01-09 04:32] LABS: ARTERIAL BLOOD GAS ALLEN TEST NORMAL; ARTERIAL BLOOD GAS ART SITE RIGHT RADIAL; ARTERIAL BLOOD GAS DELIVERY VENT; ARTERIAL BLOOD GAS VENT MODE AC; ARTERIAL DRAW? YES
[2017-01-09 05:52] LABS: INR 1.3; PARTIAL THROMBOPLASTIN TIME 32.7 SECONDS (23.5-31.3)
[2017-01-09 05:53] LABS: BASOPHIL% 0.5 % (0-2.5); EOSINOPHIL# 0.1 X10e3 (0-0.7); HEMATOCRIT 19.4 % (38.0-50.0); LYMPHOCYTE# 0.5 X10e3 (1.0-3.5); LYMPHOCYTE% 13.4 % (17.0-45.0); MEAN CORPUSCULAR HGB CONC 34.6 g/dL (30-36); MEAN PLATELET VOLUME 7.7 FL (6.5-11.5); MONOCYTE# 0.2 X10e3 (0-1.0); MONOCYTE% 6.3 % (3.0-12.0); NEUTROPHIL# 2.7 X10e3 (1.5-7.1); NEUTROPHIL% 77.8 % (40-75); PLATELET COUNT 95 X10e3 (140-420); RED BLOOD COUNT 2.47 X10e (3.90-5.60); RED CELL DISTRIBUTION WIDTH 15.4 % (11.0-15.5); WHITE BLOOD COUNT 3.5 X10e3 (4.0-10.5)
[2017-01-09 06:49] LABS: ALBUMIN SERUM 3.1 g/dL (3.5-5.0); BILIRUBIN,TOTAL 1.1 mg/dL (0.2-2.0); CALCIUM SERUM 9.1 mg/dL (8.4-10.2); MEAN CELL VOLUME 78.2 FL (83-96)
[2017-01-09 06:50] LABS: HEMOGLOBIN 6.7 gm/dL (13.0-16.0)
[2017-01-09 06:51] LABS: DIFF IND YES
[2017-01-09 06:54] LABS: ANISOCYTOSIS SL; MICROCYTOSIS SL; PLATELET ESTIMATE DECREASED (NORMAL)
[2017-01-09 06:55] LABS: BUN/CREATININE RATIO 5.2; CREATININE SERUM 2.5 mg/dL (0.6-1.4); GLOM FILT RATE Estimated 33.9 mL/min (>60)
[2017-01-09 07:42] LABS: %MB 5.4 % (0.0-4.0); MB 31.8 ng/ml
== END 2017-01-09 17:55 | disposition expired | DRG 208 ==
LOC: CED 18:46 → CEDOF 21:00 → CED 21:07 → CICCU3 21:07 → CEDOF 21:07 → CICCU3 23:01 → CEDOF 23:01 → CICCU3 23:01
PROVIDERS: Emergency Medicine; Internal Medicine
PROC: 5A1935Z Respiratory Ventilation, Less than 24 Consecutive Hours (ICD-10-PCS; 2017-01-08)
PROC: 0BH17EZ Insertion of Endotracheal Airway into Trachea, Via Natural or Artificial Opening (ICD-10-PCS; 2017-01-08)
PROC: 05HM33Z Insertion of Infusion Device into Right Internal Jugular Vein, Percutaneous Approach (ICD-10-PCS; 2017-01-08)
PROC: B543ZZA Ultrasonography of Right Jugular Veins, Guidance (ICD-10-PCS; 2017-01-08)
PROC: 5A1D00Z (ICD-10-PCS; principal; 2017-01-09)
DX: J69.0 Pneumonitis due to inhalation of food and vomit (principal); I46.9 Cardiac arrest, cause unspecified; I21.4 Non-ST elevation (NSTEMI) myocardial infarction; J96.01 Acute respiratory failure with hypoxia; J96.02 Acute respiratory failure with hypercapnia; G93.1 Anoxic brain damage, not elsewhere classified; E87.4 Mixed disorder of acid-base balance; K31.84 Gastroparesis; E10.43 Type 1 diabetes mellitus with diabetic autonomic (poly)neuropathy; N18.6 End stage renal disease; I12.0 Hypertensive chronic kidney disease with stage 5 chronic kidney disease or end stage renal disease; Z99.2 Dependence on renal dialysis; Z79.4 Long term (current) use of insulin; Z91.041 Radiographic dye allergy status; I45.10 Unspecified right bundle-branch block; K74.60 Unspecified cirrhosis of liver; G40.909 Epilepsy, unspecified, not intractable, without status epilepticus; Z51.5 Encounter for palliative care; E87.6 Hypokalemia
CPT/HCPCS: 31500; 36415; 36600; 70450; 71010; 80048; 80053; 80076; 82150; 82550; 82553; 82803; 82947; 83036; 83605; 83690; 83735; 84100; 84132; 84484; 85025; 85610; 85730; 86850; 86900; 86901; 87040; 87045; 87177; 87209; 87340; 87427; 87493; 87899; 92950; 93005; 94002; 94003; 94760; 96374; 96375; 99291; J1815; J1953; J2185; J2270; J3370; P9047